=== PATIENT | female | born 1985 | race Caucasian/White ===

== ENCOUNTER → 2016-11-14 | Outpatient (CLI) | payer BC | END | disposition home or self-care (01) | LOC: C.PAPS 10:24 | PROVIDERS: ATTEND Physician Assistant | DX: Z12.4 Encounter for screening for malignant neoplasm of cervix (principal); R87.610 Atypical squamous cells of undetermined significance on cytologic smear of cervix (ASC-US) ==

== ENCOUNTER 2017-01-21 16:40 | Inpatient (IN) | payer BC ==
[~2017-01-21] VITALS: Ht 162.6 cm; Wt 78.0 kg
[2017-01-21] MEDS ORDERED: KETOROLAC TROMETHAMINE 30 MG/ML VIAL IV STA ×2 (17:04→22:43)
[2017-01-21] MEDS ORDERED: DiphenhydrAMINE HCL 50 MG/ML VIAL IV STA (17:04)
[2017-01-21] MEDS ORDERED: SODIUM CHLORIDE 0.9% 1000ML 1,000 ML IV STA (17:04)
[2017-01-21] MEDS ORDERED: PROCHLORPERAZINE 5 MG/ML 2 ML VIAL IV STA (17:04)
[2017-01-21] MEDS ORDERED: OPTIRAY 320 IV PRN (17:30)
[2017-01-21 17:31] LABS: BASO % 0.4 %; BASO ABS # 0.04 K/uL (0-0.2); COMPLETE YES; EOS % 1.4 %; HEMATOCRIT 38.4 % (37-47); IG% 0.3 %; LYMPH % 27.8 %; LYMPH ABS # 2.72 K/uL (1.2-3.4); MEAN CELL VOLUME 87.7 fL (80-100); MEAN CORPUSCULAR HEMOGLOBIN 28.8 pg (25-34); MEAN CORPUSCULAR HGB CONC 32.8 g/dl (32-36); MEAN PLATELET VOLUME 11.1 fL (7.4-10.4); MONO % 7.7 %; NEUT % 62.4 %; PLATELET COUNT 261 K/uL (130-400); RED BLOOD COUNT 4.38 M/uL (4.2-5.4)
[2017-01-21 17:40] LABS: ISTAT CREATININE 0.8 mg/dl (0.6-1.3); ISTAT HEMOGLOBIN 13.3 g/dl (12.0-16.0); ISTAT IONIZED CALCIUM 1.23 mmol/l (1.12-1.32)
[2017-01-21 17:53] LABS: ALT/SGPT 27 U/L (12-78); AST/SGOT 14 U/L (15-37); BLOOD UREA NITROGEN 12 mg/dl (7-18); BUN/CREATININE RATIO 16.6 (10-20); CALCIUM 8.4 mg/dl (8.5-10.1); CARBON DIOXIDE 27 mmol/L (21-32); CHLORIDE 103 mmol/L (98-107); CREATININE 0.75 mg/dl (0.60-1.20); GLUCOSE 120 mg/dl (70-99); POTASSIUM 3.9 mmol/L (3.5-5.1); SODIUM 134 mmol/L (136-145)
[2017-01-21 17:56] LABS: ALKALINE PHOSPHATASE 71 U/L (45-117); PREG INTERNAL NEGATIVE QC NEG CLEAR BACKGROUND; PREG INTERNAL POSITIVE QC POS CONTROL LINE
[2017-01-21 19:18] LABS: URINE APPEARANCE CLEAR (CLEAR); URINE BILIRUBIN NEG (NEG); URINE COLOR YELLOW; URINE NITRITE NEG (NEG); URINE PH 6.5 (4.5-7.5); URINE SPECIFIC GRAVITY 1.009 (1.000-1.030); UROBILINOGEN NEG (NEG)
[2017-01-21 19:20] LABS: MANUAL MICROSCOPIC REQUIRED? NO; REVIEW REQ? NO
--- NOTE | 2017-01-21 19:43 | EMERGENCY ROOM VISIT NOTE ---
History Report prepared by Julissa: Prashant Gamez Under the Supervision of: Dr. Jessee Bassett D.O. First contact with patient: 16:54 Chief Complaint: HEAD PAIN Stated Complaint: HEAD PAIN,SENT FROM [facility] History of Present Illness The patient is a 32 year old female who presents to the Emergency Room with complaints of constant headache beginning yesterday. She also complains of nausea and calf cramping. She notes that she has been having frequent headaches within the past few months, but has not been evaluated for them yet. The patient describes her pain as a feeling of "pressure". Her headache is worsened with sitting up. Nothing improves her pain. She was seen by her chiropractor yesterday for neck and back pain, and states that it improved her pain. The patient notes that her headache was present before seeing the chiropractor. She denies chest pain, fevers, or chills. She has a history of a previous abdominal blood clot. The patient has not been on blood thinners in 2 years. Her LNMP began yesterday. She has an IUD in place. Source of History: patient Onset: Yesterday Position: head Quality: pressure Timing: constant Associated Symptoms: + neck pain (resolved), + nausea, + back pain (resolved ), No fevers, No chills, No chest pain Note: Additional symptoms: calf cramping. Review of Systems See HPI for pertinent positives & negatives. A total of 10 systems reviewed and were otherwise negative. Past Medical & Surgical Medical Problems: (1) Crohn's disease (2) GERD (gastroesophageal reflux disease) (3) Gestational diabetes Family History FHx: cancer FHx: diabetes FHx: heart disease FHx: hypertension FHx: kidney disease/stones FHx: lung disease Social History Smoking Status: Never Smoker Alcohol Use: occasionally Marital Status: Housing Status: lives with family Occupation Status: employed Current/Historical Medications No Active Prescriptions or Reported Meds Allergies Coded Allergies: Hydromorphone (Verified Allergy, Intermediate, UNKNOWN, 01/21/17) Ondansetron (Verified Allergy, Mild, HIVES SWELLING, 01/21/17) Sulfa Antibiotics (Verified Allergy, Unknown, HIVES, 01/21/17) Physical Exam Vital Signs Date Time Temp Pulse Resp B/P (MAP) Pulse Ox O2 Delivery O2 Flow Rate FiO2 01/21/17 21:01 73 01/21/17 20:19 72 20 113/62 98 Room Air 01/21/17 17:48 76 01/21/17 17:46 76 16 116/75 99 Room Air 01/21/17 16:51 37.0 88 18 126/85 97 Room Air Physical Exam GENERAL: Patient is awake, and alert. Somewhat anxious and uncomfortable. EYES: The conjunctivae are clear. The pupils are round and reactive. EARS, NOSE, MOUTH AND THROAT: The nose is without any evidence of any deformity. Mucous membranes are moist tongue is midline NECK: The neck is nontender and supple. RESPIRATORY: Normal respiratory effort is noted there is no evidence of wheezing rhonchi or rales CARDIOVASCULAR: Regular rate and rhythm noted there no murmurs rubs or gallops normal S1 normal S2 GASTROINTESTINAL: The abdomen is soft. Bowel sounds are present in all quadrants. Abdomen is nontender MUSCULOSKELETAL/EXTREMITIES: There is no evidence of gross deformity full range of motion is noted in the hips and shoulders SKIN: There is no obvious evidence of any rash. There are no petechiae, pallor or cyanosis noted. NEUROLOGIC: Patient is awake alert and oriented x3 strength is symmetric patellar reflexes are 2+ bilaterally Medical Decision & Procedures ER Provider Diagnostic Interpretation: CT ANGIOGRAPHY OF THE NECK WITH CONTRAST CLINICAL HISTORY: Right-sided neck pain and headache following recent adjustment. COMPARISON STUDY: No previous studies for comparison. Technique: CT angiography of the carotid and vertebral arteries was obtained using TagwhatraLiterably 320 IV and 3D reconstruction on an independent workstation. NASCET criteria was utilized. A dose lowering technique was utilized adhering to the principles of ALARA. CT DOSE: 751.00 mGy.cm Findings: Lung apices are clear. Caliber of the aortic arch is normal. The bilateral common carotid and internal carotid arteries are patent. This exam is compromised by quantum mottle artifact. However, there is no dissection within the internal carotid or common carotid arteries. The right vertebral artery is patent. There is a markedly abnormal appearance of the left vertebral artery. The vessel is patent at its origin. However, there is marked irregular narrowing of the majority of the cervical portion of the left vertebral artery which extends from the C3-C7 levels. 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 The dissection does not appear to extend intracranially. No additional dissections are identified within the major vasculature of the neck. There is no cervical spine fracture. Several locules of soft tissue gas within the upper cervical spine are likely due to injection. IMPRESSION: 1. Severe irregular narrowing of the majority of the cervical portion of the left vertebral artery which extends from the C3 through C7 levels and is consistent with a left vertebral artery dissection given the clinical history. Possible occlusion versus severe stenosis at the C4 level. Otherwise, severe narrowing of this vessel. No evidence for intracranial extension of the dissection by CT. Discussed with Dr. Bassett at time of dictation. 2. No dissection within the bilateral common carotid or internal carotid arteries. Electronically signed by: Ed Grande M.D. 01/21/2017 8:39 PM Dictated Date/Time: 01/21/2017 8:29 PM ANGIOGRAPHY HEAD COMBO CLINICAL HISTORY: Neck pain. Right-sided headache. Recent adjustment. COMPARISON STUDY: Head CT May 15, 2015. TECHNIQUE: Unenhanced and arterial phase imaging of the head was performed. Injection of 93 cc Optiray 320 IV was uneventful. Sagittal and coronal reconstructions were viewed as well as maximal intensity projections on an independent 3-D workstation. FINDINGS: No acute intracranial hemorrhage, midline shift or mass effect is present. Brain volume is normal. Ventricular system is normal. Basilar cisterns are patent. There are no extra-axial collections. Gordon-white differentiation is maintained. There are no findings to suggest acute dural sinus thrombosis or acute territorial infarct. There are no significant calvarial abnormalities. Visualized portions of the sinuses and mastoid air cells are clear. The bilateral M1, M2, A1 and A2 segments are patent. There are bilateral posterior communicating arteries and an anterior communicating artery. There is no abrupt vessel cut off or intracranial dissection. The intracranial posterior circulation is intact. IMPRESSION: 1. No acute intracranial findings. 2. Unremarkable CTA of the head. Electronically signed by: Ed Grande M.D. 01/21/2017 8:28 PM Dictated Date/Time: 01/21/2017 8:16 PM Laboratory Results Test 01/21/17 17:20 01/21/17 17:27 01/21/17 19:03 Total Bilirubin 0.2 mg/dl (0.2-1) Direct Bilirubin < 0.1 mg/dl (0-0.2) Aspartate Amino Transf (AST/SGOT) 14 U/L (15-37) Alanine Aminotransferase (ALT/SGPT) 27 U/L (12-78) Alkaline Phosphatase 71 U/L (45-117) Total Protein 7.3 gm/dl (6.4-8.2) Albumin 3.3 gm/dl (3.4-5.0) Lipase 142 U/L (73-393) Human Chorionic Gonadotropin, Qual NEG (NEG) Bedside Hemoglobin 13.3 g/dl (12.0-16.0) Bedside Hematocrit 39 % (37-47) Bedside Sodium 138 mEq/L (135-144) Bedside Potassium 3.9 mEq/L (3.3-5.0) Bedside Chloride 103 mEq/L (101-112) Bedside Total CO2 25 mEq/l (24-31) Bedside Blood Urea Nitrogen 12 mg/dl (7-18) Bedside Creatinine 0.8 mg/dl (0.6-1.3) Bedside Glucose (other) 120 mg/dl (70-99) Bedside Ionized Calcium (Lynette) 1.23 mmol/l (1.12-1.32) Urine Color YELLOW Urine Appearance CLEAR (CLEAR) Urine pH 6.5 (4.5-7.5) Urine Specific [place] 1.009 (1.000-1.030) Urine Protein NEG (NEG) Urine Glucose (UA) NEG (NEG) Urine Ketones NEG (NEG) Urine Occult Blood NEG (NEG) Urine Nitrite NEG (NEG) Urine Bilirubin NEG (NEG) Urine Urobilinogen NEG (NEG) Urine Leukocyte Esterase NEG (NEG) Laboratory results per my review. Medications Administered Medications (Trade) Dose Ordered Sig/Radha Route Start Time Stop Time Status Last Admin Dose Admin Ketorolac Tromethamine (Toradol Inj) 30 mg NOW STAT IV 01/21/17 17:04 01/21/17 17:06 DC 01/21/17 17:41 30 MG Sodium Chloride 1,000 ml @ 999 mls/hr Q1H1M STAT IV 01/21/17 17:04 01/21/17 18:04 DC 01/21/17 17:41 999 MLS/HR Prochlorperazine Edisylate (Compazine Inj) 10 mg NOW STAT IV 01/21/17 17:04 01/21/17 17:06 DC 01/21/17 17:42 10 MG Diphenhydramine HCl (Benadryl Inj) 25 mg NOW STAT IV 01/21/17 17:04 01/21/17 17:06 DC 01/21/17 17:41 25 MG ED Course 1701: The patient was evaluated in room B6. A complete history and physical examination were performed. 1704: Ordered Benadryl Inj 25 mg IV, Compazine Inj 10 mg IV, NSS 1,000 ml @ 999 mls/hr IV, Toradol Inj 30 mg IV. Medical Decision Differential diagnosis: Etiologies such as migraine headache, meningitis, sinusitis, CO exposure, ICH, SAH, infection, tumor, headache, sinus thrombosis, arterial dissection, as well as others were entertained. Nursing notes reviewed. The patient is a 32-year-old female who presented to the emergency department for an evaluation of headache. The patient complained of multiple areas of pain including her back her neck as well as her head. She was seen by chiropractor recently. She states that she did have an adjustment but did not necessarily feel worse after the adjustment. The patient did not have any focal neurologic deficits. She had no meningismus. I discussed the patient's laboratory and radiographic studies with her. She was treated with pain medication in the emergency department which would be appropriate for an acute headache. She was reevaluated multiple times. I discussed the patient's condition with the on-call [facility] neurologist. He has recommended IV heparin and further neuro imaging as an inpatient. I discussed his case with the on-call [facility] is. They've agreed to evaluate the patient in the emergency department for further management and disposition. Medication Reconcilliation Current Medication List: was personally reviewed by me Blood Pressure Screening Patient's blood pressure: Normal blood pressure Blood pressure disposition: Did not require urgent referral Consults Time Called: 2039 Consulting Physician: Dr Carrillo Returned Call: [phone] He recommends IV heparin and further workup including MRI as an inpatient. Additional Consults: Time Called: 2044 Consulted Physician: Dr Lnych Returned Call: [phone] Additional Comments: He will evaluate the patient in emergency department for further management and disposition. Impression Primary Impression: Dissection, vertebral artery Additional Impression: Headache Critical Care I have personally spent greater than 45 minutes of critical care time in the direct management of this patient. This includes bedside care, interpretation of diagnostic studies, and testing, discussion with consultants, patient, and family members, and other required patient management activities. This 45 minutes is in excess of all separately billable procedures. Scribe Attestation The scribe's documentation has been prepared under my direction and personally reviewed by me in its entirety. I confirm that the note above accurately reflects all work, treatment, procedures, and medical decision making performed by me. Departure Information Prescriptions No Active Prescriptions or Reported Meds Referrals Yomi Bates M.D. (PCP) Patient Instructions My [facility] Problem Qualifiers Additional Impression: Headache Headache type: unspecified Headache chronicity pattern: acute headache Intractability: not intractable Qualified Codes: R51 - Headache
--- NOTE | 2017-01-21 20:29 | DIAGNOSTIC IMAGING REPORT ---
ANGIOGRAPHY HEAD COMBO CLINICAL HISTORY: Neck pain. Right-sided headache. Recent adjustment. COMPARISON STUDY: Head CT May 15, 2015. TECHNIQUE: Unenhanced and arterial phase imaging of the head was performed. Injection of 93 cc Optiray 320 IV was uneventful. Sagittal and coronal reconstructions were viewed as well as maximal intensity projections on an independent 3-D workstation. FINDINGS: No acute intracranial hemorrhage, midline shift or mass effect is present. Brain volume is normal. Ventricular system is normal. Basilar cisterns are patent. There are no extra-axial collections. Gordon-white differentiation is maintained. There are no findings to suggest acute dural sinus thrombosis or acute territorial infarct. There are no significant calvarial abnormalities. Visualized portions of the sinuses and mastoid air cells are clear. The bilateral M1, M2, A1 and A2 segments are patent. There are bilateral posterior communicating arteries and an anterior communicating artery. There is no abrupt vessel cut off or intracranial dissection. The intracranial posterior circulation is intact. IMPRESSION: 1. No acute intracranial findings. 2. Unremarkable CTA of the head. Electronically signed by: Ed Grande M.D. 01/21/2017 8:28 PM Dictated Date/Time: 01/21/2017 8:16 PM
--- NOTE | 2017-01-21 20:41 | DIAGNOSTIC IMAGING REPORT ---
CT ANGIOGRAPHY OF THE NECK WITH CONTRAST CLINICAL HISTORY: Right-sided neck pain and headache following recent adjustment. COMPARISON STUDY: No previous studies for comparison. Technique: CT angiography of the carotid and vertebral arteries was obtained using Syrmo 320 IV and 3D reconstruction on an independent workstation. NASCET criteria was utilized. A dose lowering technique was utilized adhering to the principles of ALARA. CT DOSE: 751.00 mGy.cm Findings: Lung apices are clear. Caliber of the aortic arch is normal. The bilateral common carotid and internal carotid arteries are patent. This exam is compromised by quantum mottle artifact. However, there is no dissection within the internal carotid or common carotid arteries. The right vertebral artery is patent. There is a markedly abnormal appearance of the left vertebral artery. The vessel is patent at its origin. However, there is marked irregular narrowing of the majority of the cervical portion of the left vertebral artery which extends from the C3-C7 levels. 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 The dissection does not appear to extend intracranially. No additional dissections are identified within the major vasculature of the neck. There is no cervical spine fracture. Several locules of soft tissue gas within the upper cervical spine are likely due to injection. IMPRESSION: 1. Severe irregular narrowing of the majority of the cervical portion of the left vertebral artery which extends from the C3 through C7 levels and is consistent with a left vertebral artery dissection given the clinical history. Possible occlusion versus severe stenosis at the C4 level. Otherwise, severe narrowing of this vessel. No evidence for intracranial extension of the dissection by CT. Discussed with Dr. Bassett at time of dictation. 2. No dissection within the bilateral common carotid or internal carotid arteries. Electronically signed by: Ed Grande M.D. 01/21/2017 8:39 PM Dictated Date/Time: 01/21/2017 8:29 PM
[2017-01-21 21:10] LABS: PARTIAL THROMBOPLASTIN RATIO 1.1; PROTHROMBIN TIME (PATIENT) 10.5 SECONDS (9.0-12.0)
[2017-01-21] MEDS ORDERED: HEPARIN 25000 UNIT/500 ML D5W ONE (21:18)
[2017-01-21 22:06] VITALS: BP 136/82; PULSE 73; TEMP 36.8; O2SAT 97; Ht 162.6 cm; Wt 78.0 kg
[2017-01-21] MEDS: SODIUM CHLORIDE 0.9% 1000ML 1,000 ML IV SCH (22:42)
[2017-01-21] MEDS ORDERED: PROCHLORPERAZINE MALEATE 5 MG TAB PO PRN (22:45)
[2017-01-21] MEDS ORDERED: NAPROXEN 250 MG TAB PO PRN (22:45)
[2017-01-21 22:50] LABS: PARTIAL THROMBOPLASTIN RATIO 1.2; PROTHROMBIN TIME (PATIENT) 10.7 SECONDS (9.0-12.0)
[2017-01-21 22:54] LABS: BASO % 0.2 %; BASO ABS # 0.02 K/uL (0-0.2); EOS % 1.3 %; HEMATOCRIT 35.8 % (37-47); IG% 0.3 %; LYMPH % 32.8 %; LYMPH ABS # 3.92 K/uL (1.2-3.4); MEAN CELL VOLUME 87.5 fL (80-100); MEAN CORPUSCULAR HEMOGLOBIN 28.6 pg (25-34); MEAN PLATELET VOLUME 11.4 fL (7.4-10.4); MONO % 5.3 %; NEUT % 60.1 %; PLATELET COUNT 260 K/uL (130-400); RED BLOOD COUNT 4.09 M/uL (4.2-5.4); WHITE BLOOD COUNT 11.94 K/uL (4.8-10.8)
[2017-01-21 22:55] LABS: COMPLETE YES; MEAN CORPUSCULAR HGB CONC 32.7 g/dl (32-36)
[2017-01-22] VITALS (7 sets, daily range): BP systolic 108–125; BP diastolic 58–80; PULSE 64–85; TEMP 36.6–37; O2SAT 95–98
--- NOTE | 2017-01-22 00:35 | History and Physical ---
History & Physical Date & Time of Service: Jan 22, 2017 at 00:20 Chief Complaint: Dissection, Vertebral Artery Primary Care Physician: Yomi Bates M.D. History of Present Illness Source: patient, clinic records This is a 32 year old female with no significant past medical history presents with a few day history of headache, states that she also had neck pain and back pain associated with the headache. She states that it is worse with light - she was once on Imitrex for migraines. She also developed significant neck pain - she was seen by a chiropractor yesterday and had some treatment done on her neck /back and states that it helped with her pain. She continued to have headaches though, so presented for evaluation. She had CTA of the head/neck which suggested L vertebral artery dissection. Neurology was consulted and they recommended anticoagulation and MRI/MRA of head/neck. Patient continues to have neck and R sided pain. Denies fevers/chills, denies chest pain/shortness of breath/nausea/vomiting/diarrhea. Past Medical/Surgical History Medical Problems: (1) Crohn's disease Status: Chronic (2) GERD (gastroesophageal reflux disease) Status: Chronic (3) Gestational diabetes Status: Chronic Family History FHx: cancer FHx: diabetes FHx: heart disease FHx: hypertension FHx: kidney disease/stones FHx: lung disease Social History Smoking Status: Never Smoker Marital Status: Occupational Status: employed Immunizations History of Influenza Vaccine: Unknown History of Tetanus Vaccine?: Yes Tetanus Immunization Date: Apr 08, 2008 History of Pneumococcal: Unknown History of Hepatitis B Vaccine: Unknown Multi-Drug Resistant Organisms History of MDRO: No Allergies Coded Allergies: Hydromorphone (Verified Allergy, Intermediate, UNKNOWN, 01/21/17) Ondansetron (Verified Allergy, Mild, HIVES SWELLING, 01/21/17) Sulfa Antibiotics (Verified Allergy, Unknown, HIVES, 01/21/17) Home Medications No Active Prescriptions or Reported Meds Review of Systems Constitutional: No fever, No chills Eyes: No worsening of vision, No eye pain, No redness, No discharge, No diplopia ENT: + problem reported (neck pain, R sided, headache), No hearing loss, No unusual epistaxis, No nasal symptoms, No sore throat, No tinnitus, No dental problems, No trouble swallowing Respiratory: No cough, No sputum, No shortness of breath, No dyspnea on exertion, No dyspnea at rest, No hemoptysis Cardiovascular: No chest pain, No edema, No palpitations Abdomen: No pain, No nausea, No vomiting, No diarrhea Musculoskeletal: + joint pain (cervical neck pain), + muscle pain Genitourinary - Female: No dysuria, No urinary frequency, No urinary urgency, No urinary incontinence, No urinary retention, No hematuria Neurologic: No memory loss, No numbness/tingling, No vertigo Psychiatric: No depression symptoms, No anxiety, No insomnia Endocrine: No fatigue Hematologic / Lymphatic: No abnormal bleeding/bruising Integumentary: No rash Allergic / Immunologic: No environmental allergies, No seasonal allergies Physical Exam Vital Signs Date Time Temp Pulse Resp B/P (MAP) Pulse Ox O2 Delivery O2 Flow Rate FiO2 01/21/17 22:06 36.8 73 18 136/82 97 Room Air 01/21/17 21:33 80 20 130/73 97 Room Air 01/21/17 21:01 73 01/21/17 20:19 72 20 113/62 98 Room Air 01/21/17 17:48 76 01/21/17 17:46 76 16 116/75 99 Room Air 01/21/17 16:51 37.0 88 18 126/85 97 Room Air General Appearance: WD/WN, + mild distress (secondary to pain) Head: normocephalic, atraumatic Eyes: normal inspection, PERRL, EOMI ENT: normal ENT inspection, hearing grossly normal Neck: + pertinent finding (cervical muscle spasm; tenderness to palpation) Respiratory/Chest: chest non-tender, lungs clear, normal breath sounds, no respiratory distress, no accessory muscle use Cardiovascular: regular rate, rhythm, no edema, no gallop, no JVD, no murmur, normal peripheral pulses Abdomen/GI: normal bowel sounds, non tender, soft Back: normal inspection, no CVA tenderness, no muscle spasm, normal range of motion Extremities/Musculoskelatal: normal inspection, no calf tenderness, normal capillary refill, no pedal edema, normal range of motion Neurologic/Psych: tube draw helper II-XII nml as tested, no motor/sensory deficits, alert, normal mood/affect, oriented x 3 Skin: normal color Lymphatic: no adenopathy Diagnostics Laboratory Results Results Past 24 Hours Test 01/21/17 17:20 11/25/17 17:27 01/21/17 19:03 01/21/17 22:24 Range/Units White Blood Count 9.80 11.94 4.8-10.8 K/uL Red Blood Count 4.38 4.09 4.2-5.4 M/uL Hemoglobin 12.6 11.7 12.0-16.0 g/dL Hematocrit 38.4 35.8 37-47 % Mean Corpuscular Volume 87.7 87.5 80-100 fL Mean Corpuscular Hemoglobin 28.8 28.6 25-34 pg Mean Corpuscular Hemoglobin Concent 32.8 32.7 32-36 g/dl Platelet Count 261 260 130-400 K/uL Mean Platelet Volume 11.1 11.4 7.4-10.4 fL Neutrophils (%) (Auto) 62.4 60.1 % Lymphocytes (%) (Auto) 27.8 32.8 % Monocytes (%) (Auto) 7.7 5.3 % Eosinophils (%) (Auto) 1.4 1.3 % Basophils (%) (Auto) 0.4 0.2 % Neutrophils # (Auto) 6.12 7.18 1.4-6.5 K/uL Lymphocytes # (Auto) 2.72 3.92 1.2-3.4 K/uL Monocytes # (Auto) 0.75 0.63 0.11-0.59 K/uL Eosinophils # (Auto) 0.14 0.16 0-0.5 K/uL Basophils # (Auto) 0.04 0.02 0-0.2 K/uL RDW Standard Deviation 42.3 42.7 36.4-46.3 fL RDW Coefficient of Variation 13.0 13.3 11.5-14.5 % Immature Granulocyte % (Auto) 0.3 0.3 % Immature Granulocyte # (Auto) 0.03 0.03 0.00-0.02 K/uL Prothrombin Time 10.5 10.7 9.0-12.0 SECONDS Prothromb Time International Ratio 1.0 1.0 0.9-1.1 Activated Partial Thromboplast Time 29.0 32.4 21.0-31.0 SECONDS Partial Thromboplastin Ratio 1.1 1.2 Sodium Level 134 136-145 mmol/L Potassium Level 3.9 3.5-5.1 mmol/L Chloride Level 103 98-107 mmol/L Carbon Dioxide Level 27 21-32 mmol/L Anion Gap 4.0 15.0 16-25 mmol/L Blood Urea Nitrogen 12 7-18 mg/dl Creatinine 0.75 0.60-1.20 mg/dl Est Creatinine Clear Calc Drug Dose 108.1 ml/min Estimated GFR () 120.5 Estimated GFR (Non- 104.0 BUN/Creatinine Ratio 16.6 10-20 Random Glucose 120 70-99 mg/dl Calcium Level 8.4 8.5-10.1 mg/dl Total Bilirubin 0.2 0.2-1 mg/dl Direct Bilirubin < 0.1 0-0.2 mg/dl Aspartate Amino Transf (AST/SGOT) 14 15-37 U/L Alanine Aminotransferase (ALT/SGPT) 27 12-78 U/L Alkaline Phosphatase 71 45-117 U/L Total Protein 7.3 6.4-8.2 gm/dl Albumin 3.3 3.4-5.0 gm/dl Lipase 142 73-393 U/L Human Chorionic Gonadotropin, Qual NEG NEG Bedside Hemoglobin 13.3 12.0-16.0 g/dl Bedside Hematocrit 39 37-47 % Bedside Sodium 138 135-144 mEq/L Bedside Potassium 3.9 3.3-5.0 mEq/L Bedside Chloride 103 101-112 mEq/L Bedside Total CO2 25 24-31 mEq/l Bedside Blood Urea Nitrogen 12 7-18 mg/dl Bedside Creatinine 0.8 0.6-1.3 mg/dl Bedside Glucose (other) 120 70-99 mg/dl Bedside Ionized Calcium (Lynette) 1.23 1.12-1.32 mmol/l Urine Color YELLOW Urine Appearance CLEAR CLEAR Urine pH 6.5 4.5-7.5 Urine Specific [place] 1.009 1.000-1.030 Urine Protein NEG NEG Urine Glucose (UA) NEG NEG Urine Ketones NEG NEG Urine Occult Blood NEG NEG Urine Nitrite NEG NEG Urine Bilirubin NEG NEG Urine Urobilinogen NEG NEG Urine Leukocyte Esterase NEG NEG Diagnostic Radiology CT ANGIOGRAPHY OF THE NECK WITH CONTRAST CLINICAL HISTORY: Right-sided neck pain and headache following recent adjustment. COMPARISON STUDY: No previous studies for comparison. Technique: CT angiography of the carotid and vertebral arteries was obtained using [employer] 320 IV and 3D reconstruction on an independent workstation. NASCET criteria was utilized. A dose lowering technique was utilized adhering to the principles of ALARA. CT DOSE: 751.00 mGy.cm Findings: Lung apices are clear. Caliber of the aortic arch is normal. The bilateral common carotid and internal carotid arteries are patent. This exam is compromised by quantum mottle artifact. However, there is no dissection within the internal carotid or common carotid arteries. The right vertebral artery is patent. There is a markedly abnormal appearance of the left vertebral artery. The vessel is patent at its origin. However, there is marked irregular narrowing of the majority of the cervical portion of the left vertebral artery which extends from the C3-C7 levels. 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 The dissection does not appear to extend intracranially. No additional dissections are identified within the major vasculature of the neck. There is no cervical spine fracture. Several locules of soft tissue gas within the upper cervical spine are likely due to injection. IMPRESSION: 1. Severe irregular narrowing of the majority of the cervical portion of the left vertebral artery which extends from the C3 through C7 levels and is consistent with a left vertebral artery dissection given the clinical history. Possible occlusion versus severe stenosis at the C4 level. Otherwise, severe narrowing of this vessel. No evidence for intracranial extension of the dissection by CT. Discussed with Dr. Bassett at time of dictation. 2. No dissection within the bilateral common carotid or internal carotid arteries. Impression Assessment and Plan This is a 32 year old female with no significant past medical history presents with a few day history of headache found to have vertebral artery dissection L Vertebral Artery Dissection Head/neck CTA performed showing a L vertebral artery dissection; no intracranial extension appreciate neurology input will start IV heparin MRI/MRA of the head/neck ordered monitor labs and Hgb Toradol and Naproxen PRN for headache should be on antiplatelets - started on aspirin neurology consulted FULL CODE Advanced Directives Existing Living Will: No Existing Power of Locomotive Engineer Diesel: No VTE Prophylaxis VTE Risk Assessment Done? Y/N: Yes Risk Level: Moderate Given or contraindicated: Other Anticoagulation
[2017-01-22 03:29] LABS: HEMATOCRIT 36.7 % (37-47); MEAN CELL VOLUME 87.8 fL (80-100); MEAN CORPUSCULAR HEMOGLOBIN 29.4 pg (25-34); MEAN CORPUSCULAR HGB CONC 33.5 g/dl (32-36); MEAN PLATELET VOLUME 11.6 fL (7.4-10.4); PLATELET COUNT 253 K/uL (130-400); RED BLOOD COUNT 4.18 M/uL (4.2-5.4); WHITE BLOOD COUNT 10.04 K/uL (4.8-10.8)
[2017-01-22 03:42] LABS: PARTIAL THROMBOPLASTIN RATIO 1.7
[2017-01-22 03:48] LABS: BUN/CREATININE RATIO 15.1 (10-20); CALCIUM 8.3 mg/dl (8.5-10.1); CREATININE 0.68 mg/dl (0.60-1.20); POTASSIUM 3.8 mmol/L (3.5-5.1)
[2017-01-22] MEDS ORDERED: HEPARIN IV BOLUS 3,000 UNIT in SYRINGE 0 ML IV ONE (05:00)
--- NOTE | 2017-01-22 06:56 | DIAGNOSTIC IMAGING REPORT ---
Brain MRI WITHOUT CONTRAST HISTORY: Headaches. f/u vertebral artery dissection TECHNIQUE: Multiplanar multisequence MRI of the brain was performed without the use of contrast. COMPARISON STUDY: None. FINDINGS: There are no areas of restricted diffusion to suggest acute infarction. The midline structures are intact. Small retention cyst within the left maxillary sinus and mild mucosal thickening within the right sphenoid sinus.. The mastoid air cells are clear. The ventricles and sulci are within normal limits for age. There is no mass, hematoma, midline shift. The major vascular flow-voids at the skull base are well maintained. IMPRESSION: No acute intracranial abnormality. Electronically signed by: Mario Alberto Mcclelland M.D. 01/22/2017 6:54 AM Dictated Date/Time: 01/22/2017 6:51 AM
--- NOTE | 2017-01-22 06:58 | DIAGNOSTIC IMAGING REPORT ---
Brain MRA HISTORY: f/u vertebral artery dissection TECHNIQUE: 3-D [id number] MRA of the brain was performed without contrast. COMPARISON STUDY: None. FINDINGS: Visualized intracranial internal carotid arteries, distal vertebral arteries, and basilar artery are widely patent. There is no significant stenosis, occlusion, or aneurysm seen within the bilateral ACAs, MCAs, or counter stitcher. Slightly hypoplastic distal left vertebral artery. IMPRESSION: No significant stenosis, occlusion, or aneurysm within the [place]. Electronically signed by: Mario Alberto Mcclelland M.D. 01/22/2017 6:56 AM Dictated Date/Time: 01/22/2017 6:54 AM
--- NOTE | 2017-01-22 07:01 | DIAGNOSTIC IMAGING REPORT ---
NECK MRA HISTORY: f/u vertebral artery dissection TECHNIQUE: [id number] and gadolinium-enhanced MRA of the neck was performed both before and after the intravenous administration of contrast. All measurements were calculated based on NASCET criteria. COMPARISON STUDY: Neck CTA 01/21/2017. FINDINGS: The aortic arch and proximal great vessels are widely patent. Dominant right vertebral artery which is widely patent. Bilateral common carotid and internal carotid arteries are widely patent without evidence for dissection. The proximal left vertebral artery is patent. However, there is again noted severe narrowing within the left vertebral artery from the C3-C7 level consistent with the patient's history of a vertebral artery dissection. Distal vertebral artery is patent and demonstrates slight diminished perfusion. IMPRESSION: 1. No significant change in the severe narrowing of the left vertebral artery from the C3-C7 level consistent with a vertebral artery dissection. 2. Otherwise, the right vertebral artery and carotid arteries are widely patent. Electronically signed by: Mario Alberto Mcclelland M.D. 01/22/2017 7:00 AM Dictated Date/Time: 01/22/2017 6:56 AM
[2017-01-22] MEDS: ASPIRIN 81 MG ECTAB PO SCH (07:36)
[2017-01-22] MEDS ORDERED: INFLUENZA VIRUS QUAD VACCINE 0.5 ML SYR IM. ONE (08:00)
[2017-01-22] MEDS ORDERED: INFLUENZA ADMINISTRATION CHARGE ONE (08:00)
[2017-01-22 09:02] LABS: PARTIAL THROMBOPLASTIN RATIO 3.5
[2017-01-22] MEDS ORDERED: MoRPHine SULFATE 2 MG/ML CARP IV PRN (09:30)
[2017-01-22] MEDS ORDERED: ACETAMINOPHEN IV 100 ML IV PRN (09:30)
[2017-01-22] MEDS: SODIUM CHLORIDE 0.9% 1000ML 1,000 ML IV SCH ×2 (11:01→23:00)
--- NOTE | 2017-01-22 13:04 | CONSULTATION REPORT ---
DATE OF CONSULTATION: 01/22/[address] Guerrero. Debo is a 32-year-old woman with a known history of migraine headaches, increasingly frequent of late and well known to Dr. Yomi Bates. She has had some neck and back pain associated with the headaches and actually sought chiropractic help several days ago and received manipulations of the cervical and I suspect lumbar spine. The neck pain improved, but then she developed more headache and a sensation of burning inside her neck and head and was seen by the ER. The ER physician astutely obtained a history of recent chiropractic manipulation, performed a CTA of the head and noted long irregular appearance of the vertebral artery consistent with the dissection. Subsequently, imaging studies have shown no evidence for acute infarction, at least by my interpretation of the films. She has been admitted to the hospital. She is on heparin and is underway to be switched over to Coumadin as per the standard treatment protocol for the dissection. PAST MEDICAL HISTORY: Medical problems include Crohn disease, GERD, gestational diabetes and in the past some hypercoagulability issues that may have been related to surgery. This is all very vague. She was at [facility] for this. Her mother had a blood clot workup without any detection of familial hypercoagulability and I am sure the patient did as well but this is probably somewhere in the [facility] records and needs review. FAMILY HISTORY: Otherwise family history is positive for cancer, diabetes, heart disease, hypertension, kidney disease and lung disease. SOCIAL HISTORY: Reveals her to be a never smoker. She is . She is employed. She does not consume ethanol to any significant degree. Her immunizations are up-to-date. She has no history of drug resistant organisms. ALLERGIES: SHE HAS ALLERGIES TO HYDROMORPHONE, ZOFRAN, AND SULFA. She reports no active medications other than at times some Imitrex for the headaches and generally relies on Excedrin Migraine or nonsteroidal anti-inflammatories. To my knowledge, she has never been placed on any preventative medications for headache such as beta marilyn, tricyclic antidepressants, Topamax, serotonin reuptake inhibitors, Depakote, etc. REVIEW OF SYSTEMS: With the exception of the headaches and neck pain, pretty unremarkable. She has had no significant systemic complaints. She has had no issues referable to head, eyes, ears, nose and throat, cardiovascular, pulmonary, gastrointestinal, genitourinary, musculoskeletal systems save for the problems that are enumerated above under past medical history. Neurologically, she has some migraines, but none of these are associated with any particular aura and she has had the neck pain and apparently does receive chiropractic manipulations on a fairly regular basis as needed and did have manipulation just prior to the onset of her current complaints. PHYSICAL EXAMINATION: VITAL SIGNS: Her blood pressure 136/82, pulse was 73, respirations were 18. GENERAL: She was awake, alert, oriented in 3 spheres. HEENT: She had no cranial deformities. No bruits were heard. Eye movements were normal. LUNGS: Clear. HEART: Had a regular rhythm. ABDOMEN: Soft and nontender. EXTREMITIES: Free of edema. NEUROLOGIC: Today neurologically she is awake, alert, oriented in 3 spheres, has normal eye movements. No nystagmus is seen. There is no pupillary asymmetry, no visual field cuts. Facial motility and strength, facial sensation is normal. Speech is clear and there is no tremor, tics, or choreiform activity. Strength is excellent. Reflexes are 1+. Toes are downgoing. No Wiliam signs are seen. Sensation is intact. At this point fortunately, we have detected the dissection of the vertebral artery without any evidence clinically or by imaging studies that this has produced a stroke in the posterior circulation. The recommended management here would be heparin swinging over to Coumadin for 3 months, then repeat a CTA to see if the vessel has recanalized and if so, stopping the Coumadin and switching over to aspirin only as long as she can tolerate it and plavix if she cannot.. I will check back with her tomorrow. I would recommend she be started on Coumadin fairly soon, so that her INR could get in the range, we can stop the heparin and get her home. In terms of headache management, I certainly would not use triptans in this setting. I would use analgesics. She probably will need to follow up with neurology within several weeks of discharge, have her situation reviewed and perhaps be started on a program of headache management with preventative agents. I certainly would suggest that she could try some magnesium oxide 400 mg a day and riboflavin 400 mg a day while she is here as these are unlikely to have any effect on her vasculature and again I would use some nonnarcotic and judicious narcotic analgesics if her headaches are problematic but I would stay away from triptans. I will check with her tomorrow. ELIZABETH
[2017-01-22] MEDS ORDERED: WARFARIN SOD 10 MG TAB PO ONE (14:45)
[2017-01-22] MEDS: MoRPHine SULFATE 4 MG/ML 1 ML CARP\\VIAL IV PRN ×2 (14:45→23:37)
[2017-01-22 16:18] LABS: PARTIAL THROMBOPLASTIN RATIO 1.9
[2017-01-22] MEDS: HEPARIN 25,000 UNIT/500ML D5W 500 ML IV PRN (16:51)
--- NOTE | 2017-01-22 17:51 | Progress Note ---
Internal Med Progress Note Date of Service: Jan 22, 2017. Provider Documentation: SUBJECTIVE: still has significant headache on the back side of head has photophobia denies nausea no blurry vision no sob or cough afebrile OBJECTIVE: Vital Signs-as noted below Exam: General-alert and oriented. Not in distress ENT-Normal hearing Neck-no neck masses Lungs-CTA b/l no wheezing or crackles Heart-S1 and S2 heard. Regular rate and rhythm, no murmurs Abdomen-Soft Bowel sounds present no tenderness present no distension Extremities-No pedal edema no erythema Neuro-alert and awake moves extremities Lab data as noted below. ASSESSMENT & PLAN: This is a 32 year old female with no significant past medical history presents with a few day history of headache found to have vertebral artery dissection L Vertebral Artery Dissection Head/neck CTA performed showing a L vertebral artery dissection; no intracranial extension appreciate neurology input started on IV heparin MRI/MRA of the head/neck shows same should be on antiplatelets - started on aspirin started on Coumadin f/u inr pain control neurology consulted and appreciate inputs DVT PROPHYLAXIS iv heparin DISPOSITION to be determined Vital Signs: Date Time Temp Pulse Resp B/P (MAP) Pulse Ox O2 Delivery O2 Flow Rate FiO2 01/22/17 16:00 Room Air 01/22/17 15:56 36.7 64 18 123/80 (94) 97 Room Air 01/22/17 12:00 Room Air 01/22/17 11:57 37.0 76 16 109/58 (75) 96 Room Air 01/22/17 08:00 Room Air 01/22/17 07:45 36.8 70 16 114/60 (78) 98 Room Air 01/22/17 04:00 36.8 67 19 108/64 (79) 98 Room Air 01/22/17 04:00 97 Room Air 01/22/17 00:46 36.6 85 16 119/73 (88) 95 Room Air 01/22/17 00:00 97 Room Air 01/21/17 22:06 36.8 73 18 136/82 97 Room Air 01/21/17 21:33 80 20 130/73 97 Room Air 01/21/17 21:01 73 01/21/17 20:19 72 20 113/62 98 Room Air 01/21/17 17:48 76 Lab Results: Results Past 24 Hours Test 01/21/17 19:03 01/21/17 22:24 01/22/17 03:17 01/22/17 08:32 Range/Units Urine Color YELLOW Urine Appearance CLEAR CLEAR Urine pH 6.5 4.5-7.5 Urine Specific [place] 1.009 1.000-1.030 Urine Protein NEG NEG Urine Glucose (UA) NEG NEG Urine Ketones NEG NEG Urine Occult Blood NEG NEG Urine Nitrite NEG NEG Urine Bilirubin NEG NEG Urine Urobilinogen NEG NEG Urine Leukocyte Esterase NEG NEG White Blood Count 11.94 10.04 4.8-10.8 K/uL Red Blood Count 4.09 4.18 4.2-5.4 M/uL Hemoglobin 11.7 12.3 12.0-16.0 g/dL Hematocrit 35.8 36.7 37-47 % Mean Corpuscular Volume 87.5 87.8 80-100 fL Mean Corpuscular Hemoglobin 28.6 29.4 25-34 pg Mean Corpuscular Hemoglobin Concent 32.7 33.5 32-36 g/dl Platelet Count 260 253 130-400 K/uL Mean Platelet Volume 11.4 11.6 7.4-10.4 fL Neutrophils (%) (Auto) 60.1 % Lymphocytes (%) (Auto) 32.8 % Monocytes (%) (Auto) 5.3 % Eosinophils (%) (Auto) 1.3 % Basophils (%) (Auto) 0.2 % Neutrophils # (Auto) 7.18 1.4-6.5 K/uL Lymphocytes # (Auto) 3.92 1.2-3.4 K/uL Monocytes # (Auto) 0.63 0.11-0.59 K/uL Eosinophils # (Auto) 0.16 0-0.5 K/uL Basophils # (Auto) 0.02 0-0.2 K/uL RDW Standard Deviation 42.7 42.0 36.4-46.3 fL RDW Coefficient of Variation 13.3 13.0 11.5-14.5 % Immature Granulocyte % (Auto) 0.3 % Immature Granulocyte # (Auto) 0.03 0.00-0.02 K/uL Prothrombin Time 10.7 9.0-12.0 SECONDS Prothromb Time International Ratio 1.0 0.9-1.1 Activated Partial Thromboplast Time 32.4 43.5 91.4 21.0-31.0 SECONDS Partial Thromboplastin Ratio 1.2 1.7 3.5 Sodium Level 136 136-145 mmol/L Potassium Level 3.8 3.5-5.1 mmol/L Chloride Level 105 98-107 mmol/L Carbon Dioxide Level 26 21-32 mmol/L Anion Gap 5.0 3-11 mmol/L Blood Urea Nitrogen 10 7-18 mg/dl Creatinine 0.68 0.60-1.20 mg/dl Est Creatinine Clear Calc Drug Dose 118.0 ml/min Estimated GFR () 132.3 Estimated GFR (Non- 114.1 BUN/Creatinine Ratio 15.1 10-20 Random Glucose 113 70-99 mg/dl Calcium Level 8.3 8.5-10.1 mg/dl Test 01/22/17 15:40 Range/Units Activated Partial Thromboplast Time 48.2 21.0-31.0 SECONDS Partial Thromboplastin Ratio 1.9
[2017-01-22] MEDS ORDERED: MAGNESIUM OXIDE 400 MG TAB PO ONE (18:00)
[2017-01-23 00:10] VITALS: BP 115/72; PULSE 71; TEMP 36.8; O2SAT 97
[2017-01-23 03:17] VITALS: BP 100/65; PULSE 66; TEMP 36.5; O2SAT 98
[2017-01-23 05:01] LABS: INR 1.1 (0.9-1.1); PROTHROMBIN TIME (PATIENT) 12.3 SECONDS (9.0-12.0)
[2017-01-23 07:48] VITALS: BP 111/73; PULSE 69; TEMP 37; O2SAT 99
[2017-01-23] MEDS: ASPIRIN 81 MG ECTAB PO SCH (08:19)
[2017-01-23] MEDS: MAGNESIUM OXIDE 400 MG TAB PO SCH (08:20)
[2017-01-23] MEDS: MoRPHine SULFATE 4 MG/ML 1 ML CARP\\VIAL IV PRN ×3 (10:45→20:57)
[2017-01-23 11:12] VITALS: BP 120/79; PULSE 83; TEMP 36.8; O2SAT 97
[2017-01-23] MEDS: SODIUM CHLORIDE 0.9% 1000ML 1,000 ML IV SCH (11:43)
[2017-01-23 15:47] VITALS: BP 123/79; PULSE 73; TEMP 36.6; O2SAT 97
[2017-01-23] MEDS: WARFARIN SOD 5 MG TAB PO SCH (15:59)
[2017-01-23] MEDS: HEPARIN 25,000 UNIT/500ML D5W 500 ML IV PRN ×2 (16:00→18:57)
--- NOTE | 2017-01-23 16:23 | Progress Note ---
Internal Med Progress Note Date of Service: Jan 23, 2017. Provider Documentation: SUBJECTIVE: headache is same but lights not bothering her anymore afebrile' denies chest pain or sob eating ok seems comfortable OBJECTIVE: Vital Signs-as noted below Exam: General-alert and oriented. Not in distress ENT-Normal hearing Neck-no neck masses Lungs-CTA b/l no wheezing or crackles Heart-S1 and S2 heard. Regular rate and rhythm, no murmurs Abdomen-Soft Bowel sounds present no tenderness present no distension Extremities-No pedal edema no erythema Neuro-alert and awake moves extremities Lab data as noted below. ASSESSMENT & PLAN: This is a 32 year old female with no significant past medical history presents with a few day history of headache found to have vertebral artery dissection L Vertebral Artery Dissection Head/neck CTA performed showing a L vertebral artery dissection; no intracranial extension appreciate neurology input started on IV heparin MRI/MRA of the head/neck shows same should be on antiplatelets - started on aspirin started on Coumadin f/u inr pain control neurology consulted and appreciate inputs started on magnesium tab daily await pain better controlled and inr to be therapeutic NEUROLOGY RECOMMENDS TO F/U WITH THEM IN 3 WEEKS WITH CTA HEAD HEADACHE NEURO RECOMMENDING PREDNISONE STARTING TOMORROW WIT 80MG DOSE AND TAPER. DVT PROPHYLAXIS iv heparin DISPOSITION to be determined Vital Signs: Date Time Temp Pulse Resp B/P (MAP) Pulse Ox O2 Delivery O2 Flow Rate FiO2 01/23/17 16:25 Room Air 01/23/17 15:47 36.6 73 16 123/79 (94) 97 Room Air 01/23/17 12:15 Room Air 01/23/17 11:12 36.8 83 16 120/79 (93) 97 Room Air 01/23/17 08:45 Room Air 01/23/17 07:48 37.0 69 16 111/73 (86) 99 Room Air 01/23/17 04:00 Room Air 01/23/17 03:17 36.5 66 20 100/65 (77) 98 Room Air 01/23/17 00:10 36.8 71 18 115/72 (86) 97 Room Air 01/23/17 00:00 Room Air 01/22/17 19:06 37.0 81 18 125/70 (88) 98 Room Air Lab Results: Results Past 24 Hours Test 01/23/17 04:30 Range/Units Prothrombin Time 12.3 9.0-12.0 SECONDS Prothromb Time International Ratio 1.1 0.9-1.1 Activated Partial Thromboplast Time 52.7 21.0-31.0 SECONDS Partial Thromboplastin Ratio 2.0
--- NOTE | 2017-01-23 17:31 | PROGRESS NOTE ---
DATE: 01/23/2017 Debo is looking stable today. She has been moved to the regular floor. She has a major headache which has not broken over several days and has been resistant to narcotics. She is still having a little photophobia but is able to look out the window without having the shades drawn and continues to have no focal neurologic complaints or findings on exam. She has been started on Coumadin; the INRs are being observed. Heparin will be continued until the INR is in a therapeutic range and she should be discharged with a followup in neurology in about 3 weeks or so we can arrange for an outpatient CTA in 3 months. For now, I would suggest perhaps a trial of steroids to treat the migraine. This could be oral or even IV. I would not give it tonight as she runs the risk of not being able to sleep but I would recommend perhaps 80 mg tomorrow morning, 80 the following morning and 60 for two mornings, 40 for two mornings, 20 for two mornings and 10 for two mornings, depending on how she does. Obviously if several doses of steroids break the headache then I would give one more dose and stop at that point. I will check back with her tomorrow.
[2017-01-23 20:16] VITALS: BP 121/79; PULSE 82; TEMP 36.9; O2SAT 94
[2017-01-24] VITALS (8 sets, daily range): BP systolic 97–138; BP diastolic 63–90; PULSE 64–87; TEMP 36.3–37.4; O2SAT 95–98
[2017-01-24 06:33] LABS: INR 1.8 (0.9-1.1); PARTIAL THROMBOPLASTIN RATIO 2.9; PROTHROMBIN TIME (PATIENT) 20.2 SECONDS (9.0-12.0)
[2017-01-24] MEDS: HEPARIN 25,000 UNIT/500ML D5W 500 ML IV PRN ×3 (07:09→14:33)
[2017-01-24] MEDS: MAGNESIUM OXIDE 400 MG TAB PO SCH (07:41)
[2017-01-24] MEDS: ASPIRIN 81 MG ECTAB PO SCH (07:41)
--- NOTE | 2017-01-24 12:37 | Progress Note ---
Internal Med Progress Note Date of Service: Jan 24, 2017. Provider Documentation: SUBJECTIVE: Patient seen and examined at the bedside. Denies neck pain or headaches. denies shortness of breath or chest pain or abdominal pain. OBJECTIVE: Exam: General- no acute distress, sitting comfortably on the bed Eyes- EOMI ENT- no epistaxis Neck- normal range of motion Lungs- clear to auscultation bilaterally, no wheezing, no crackles Heart- regular rate Abdomen- non tender, soft, + bowel sounds Extremities- no edema Neuro- no focal neurological deficits ASSESSMENT & PLAN: Left Vertebral Artery Dissection Head CTA 01/21/17: Severe irregular narrowing of the majority of the cervical portion of the left vertebral artery which extends from the C3 through C7 levels and is consistent with a left vertebral artery dissection Neurology following the patient Continue aspirin 81 mg On heparin IV and receiving Coumadin 5mg daily, INR 1.8 on 01/24/17 patient counseled on avoiding stresses to neck in the future such as neck manipulations, sudden acceleration and deceleration of neck such as experienced in use of firearms or roller coaster rides Migraine headache symptoms resolving, will start steroids if needed DVT PROPHYLAXIS on heparin drip to bridge to coumadin DISPOSITION plan to discharge home once stable therapeutic INR for anticoagulation will need anticoagulation clinic follow up, anticoagulation clinic to call patient will need primary care physician follow up 02/02/2017 11:20 AM Yomi Bates MD [facility] will need followup in neurology in about 3 weeks for re-evaluation and outpatient CTA in 3 months: have scheduled appointment on 02/13/2017 12:35 PM General Neurology [facility] Vital Signs: Date Time Temp Pulse Resp B/P (MAP) Pulse Ox O2 Delivery O2 Flow Rate FiO2 01/24/17 11:49 36.4 84 16 118/79 (92) 97 Room Air 01/24/17 08:15 Room Air 01/24/17 07:25 36.3 74 18 97/63 (74) 97 Room Air 01/24/17 04:00 Room Air 01/24/17 03:58 36.7 64 16 101/66 (78) 98 Room Air 01/24/17 00:20 36.7 74 20 107/70 (82) 98 Room Air 01/24/17 00:00 Room Air 01/23/17 20:16 36.9 82 19 121/79 (93) 94 Room Air 01/23/17 19:20 Room Air 01/23/17 16:25 Room Air 01/23/17 15:47 36.6 73 16 123/79 (94) 97 Room Air Lab Results: Results Past 24 Hours Test 01/24/17 05:57 Range/Units Prothrombin Time 20.2 9.0-12.0 SECONDS Prothromb Time International Ratio 1.8 0.9-1.1 Activated Partial Thromboplast Time 75.1 21.0-31.0 SECONDS Partial Thromboplastin Ratio 2.9
[2017-01-24 13:46] LABS: PARTIAL THROMBOPLASTIN RATIO 2.4
[2017-01-24] MEDS: MoRPHine SULFATE 4 MG/ML 1 ML CARP\\VIAL IV PRN ×2 (14:06→17:37)
[2017-01-24] MEDS: WARFARIN SOD 5 MG TAB PO SCH (15:54)
--- NOTE | 2017-01-24 17:08 | PROGRESS NOTE ---
DATE: 01/24/2017 Debo is actually in pretty good shape this morning. She was headache free and had been free from 8 hours. It was her third day of magnesium oxide and steroids were appropriately held as she seemed improved. Unfortunately now since noon she has had another headache and it is late in the day to start steroids for this one so my recommendation would be to continue magnesium oxide and consider a dose of steroids tomorrow morning if she continues to have the pain. Her INR is still not quite in the therapeutic range and heparin is continuing. She has had no symptoms to suggest embolic events from the left vertebral artery dissection. The MRI have shown no evidence for same and clinically her exam is normal. She would like to go to [place] on a bus trip this Monday. Perhaps we can get her Coumadin adjusted by that time and her headache under control. I will check back with her tomorrow. Hopefully, things will begin to square away. Obviously, I have suggested that she stay away from chiropractic manipulations of her neck for the foreseeable future. ELIZABETH
--- NOTE | 2017-01-24 18:25 | Progress Note ---
Progress Note Date of Service Jan 24, 2017. Progress Note Was called by nurse that patient was feeling clammy after receiving morphine for headache. Patient assessed at bedside. Awake and alert and reported that she wants to vomit. No focal neurological deficits. Patient's hemodynamically stable. EKG in normal sinus rhythm. Patient's sensation likely due to nausea from morphine. Will stop morphine prn. Patient given antiemetics. Patient also to be given solumedrol 10 mg IV for headache. Patient counseled to ask for acetaminophen if further headache. Patient counseled that solumedrol use may cause some insomnia. Patient aware and agrees to plan. Patient to be started on prednisone 40 mg PO tomorrow if solumedrol works to reduce discomfort
[2017-01-24] MEDS ORDERED: METHYLPREDNISOLONE IV 10 MG in SYRINGE 0 ML IV ONE (18:30)
[2017-01-24] MEDS ORDERED: METOCLOPRAMIDE HCL INJ 5 MG/ML 2 ML VIAL IV ONE (18:30)
[2017-01-25 04:00] VITALS: BP 81/52; PULSE 76; TEMP 36.7; O2SAT 97
[2017-01-25 05:44] LABS: BASO % 0.2 %; BASO ABS # 0.03 K/uL (0-0.2); COMPLETE YES; HEMATOCRIT 38.8 % (37-47); IG% 0.3 %; LYMPH ABS # 1.44 K/uL (1.2-3.4); MEAN CORPUSCULAR HGB CONC 33.8 g/dl (32-36); MEAN PLATELET VOLUME 11.4 fL (7.4-10.4); MONO % 4.9 %; NEUT % 84.6 %; PLATELET COUNT 287 K/uL (130-400); RED BLOOD COUNT 4.51 M/uL (4.2-5.4); WHITE BLOOD COUNT 14.43 K/uL (4.8-10.8)
[2017-01-25 05:50] LABS: INR 2.4 (0.9-1.1); PROTHROMBIN TIME (PATIENT) 26.1 SECONDS (9.0-12.0)
[2017-01-25 06:14] LABS: BUN/CREATININE RATIO 16.9 (10-20); CALCIUM 9.1 mg/dl (8.5-10.1); CREATININE 0.59 mg/dl (0.60-1.20); POTASSIUM 4.3 mmol/L (3.5-5.1)
[2017-01-25 06:17] LABS: ALB/GLOB RATIO 0.8 (0.9-2)
[2017-01-25 07:27] VITALS: BP 101/59; PULSE 78; TEMP 36.5; O2SAT 97
[2017-01-25 07:56] LABS: PARTIAL THROMBOPLASTIN RATIO 3.2
[2017-01-25] MEDS: HEPARIN 25,000 UNIT/500ML D5W 500 ML IV PRN ×3 (08:40→16:23)
[2017-01-25] MEDS: ASPIRIN 81 MG ECTAB PO SCH (08:41)
[2017-01-25] MEDS: MAGNESIUM OXIDE 400 MG TAB PO SCH (08:42)
[2017-01-25 12:20] VITALS: BP 144/79; PULSE 82; TEMP 37.1; O2SAT 97
[2017-01-25 15:14] VITALS: BP 120/78; PULSE 93; TEMP 36.8; O2SAT 95
[2017-01-25 15:20] LABS: PARTIAL THROMBOPLASTIN RATIO 2.3
[2017-01-25] MEDS ORDERED: WARFARIN SOD 2 MG TAB PO SCH (16:00)
--- NOTE | 2017-01-25 16:55 | PROGRESS NOTE ---
DATE: 01/25/2017 DATE: 01/25/2017 Debo's headache was getting pretty severe last night. She had some IV morphine that unfortunately made her ill and then she received some IV Solu-Medrol low dose and is now on oral prednisone and her headache is virtually gone. She continues to have no neurologic deficits, neck pain, etc. and feels much better today. Her INRs are coming up on the Coumadin and she may well be with a second INR this afternoon, her levels will be stable and she can be discharged. If so, I would suggest she be started on prednisone 40 mg daily for 3 days, then 20 mg daily for 3 days, 10 mg daily for 3 days and stop and continue the magnesium oxide for headaches. We can see her back in neurology in about 3-4 weeks and follow up with the left vertebral artery dissection and of course she should avoid chiropractic manipulation for the foreseeable future. Her exam remains normal. She is asymptomatic now and I think it would be fine for her to go on a bus trip to [facility] as long as she is careful not to rotate her neck too hard or do anything else that might retraumatize the left vertebral artery which is doubtful. ELIZABETH
--- NOTE | 2017-01-25 19:12 | Progress Note ---
Internal Med Progress Note Date of Service: Jan 25, 2017. Provider Documentation: SUBJECTIVE: Patient seen and examined at the bedside. Denies neck pain or headaches. denies shortness of breath or chest pain or abdominal pain. OBJECTIVE: Exam: General- no acute distress, sitting comfortably on the bed Eyes- EOMI ENT- no epistaxis Neck- normal range of motion Lungs- clear to auscultation bilaterally, no wheezing, no crackles Heart- regular rate Abdomen- non tender, soft, + bowel sounds Extremities- no edema Neuro- no focal neurological deficits ASSESSMENT & PLAN: Migraine headache symptoms resolving: received 40 mg prednisone on 01/25/17; as per neurology the steroid taper plan should be:prednisone 40 mg daily for 3 days , then 20 mg daily for 3 days, 10 mg daily for 3 days and stop continue the magnesium oxide for headaches Left Vertebral Artery Dissection Head CTA 01/21/17: Severe irregular narrowing of the majority of the cervical portion of the left vertebral artery which extends from the C3 through C7 levels and is consistent with a left vertebral artery dissection Neurology following the patient Continue aspirin 81 mg On heparin IV and receiving Coumadin daily, INR 2.4 on 01/25/17, because of concern that INR may be supratherapeutic by 01/26/17, coumadin dose given on has been decreased to 2 mg DVT PROPHYLAXIS on heparin drip to bridge to coumadin until second therapeutic INR expected to be on 01/26/17 DISPOSITION plan to discharge home once stable therapeutic INR for anticoagulation will need anticoagulation clinic follow up, anticoagulation clinic to call patient will need primary care physician follow up 02/02/2017 11:20 AM Yomi Bates MD [facility] will need followup in neurology for re-evaluation and outpatient CTA in 3 months : have scheduled appointment on 02/13/2017 12:35 PM General Neurology [facility] patient counseled on avoiding stresses to neck in the future such as neck manipulations, sudden acceleration and deceleration of neck such as experienced in use of firearms or roller coaster rides Vital Signs: Date Time Temp Pulse Resp B/P (MAP) Pulse Ox O2 Delivery O2 Flow Rate FiO2 01/25/17 16:00 Room Air 01/25/17 15:14 36.8 93 16 120/78 (92) 95 Room Air 01/25/17 12:20 37.1 82 18 144/79 (100) 97 Room Air 01/25/17 12:00 Room Air 01/25/17 08:00 Room Air 01/25/17 07:27 36.5 78 16 101/59 (73) 97 Room Air 01/25/17 04:00 Room Air 01/25/17 04:00 36.7 76 17 81/52 (62) 97 Room Air 01/25/17 00:00 Room Air 01/24/17 23:52 37.4 79 20 108/68 (81) 95 Room Air 01/24/17 20:00 Room Air 01/24/17 19:28 36.9 83 20 107/68 (81) 98 Lab Results: Results Past 24 Hours Test 01/25/17 05:18 01/25/17 07:21 01/25/17 14:50 Range/Units White Blood Count 14.43 4.8-10.8 K/uL Red Blood Count 4.51 4.2-5.4 M/uL Hemoglobin 13.1 12.0-16.0 g/dL Hematocrit 38.8 37-47 % Mean Corpuscular Volume 86.0 80-100 fL Mean Corpuscular Hemoglobin 29.0 25-34 pg Mean Corpuscular Hemoglobin Concent 33.8 32-36 g/dl Platelet Count 287 130-400 K/uL Mean Platelet Volume 11.4 7.4-10.4 fL Neutrophils (%) (Auto) 84.6 % Lymphocytes (%) (Auto) 10.0 % Monocytes (%) (Auto) 4.9 % Eosinophils (%) (Auto) 0.0 % Basophils (%) (Auto) 0.2 % Neutrophils # (Auto) 12.22 1.4-6.5 K/uL Lymphocytes # (Auto) 1.44 1.2-3.4 K/uL Monocytes # (Auto) 0.70 0.11-0.59 K/uL Eosinophils # (Auto) 0.00 0-0.5 K/uL Basophils # (Auto) 0.03 0-0.2 K/uL RDW Standard Deviation 41.2 36.4-46.3 fL RDW Coefficient of Variation 13.0 11.5-14.5 % Immature Granulocyte % (Auto) 0.3 % Immature Granulocyte # (Auto) 0.04 0.00-0.02 K/uL Prothrombin Time 26.1 9.0-12.0 SECONDS Prothromb Time International Ratio 2.4 0.9-1.1 Sodium Level 131 136-145 mmol/L Potassium Level 4.3 3.5-5.1 mmol/L Chloride Level 101 98-107 mmol/L Carbon Dioxide Level 26 21-32 mmol/L Anion Gap 4.0 3-11 mmol/L Blood Urea Nitrogen 10 7-18 mg/dl Creatinine 0.59 0.60-1.20 mg/dl Est Creatinine Clear Calc Drug Dose 136.4 ml/min Estimated GFR () 138.6 Estimated GFR (Non- 119.6 BUN/Creatinine Ratio 16.9 10-20 Random Glucose 137 70-99 mg/dl Calcium Level 9.1 8.5-10.1 mg/dl Total Bilirubin 0.2 0.2-1 mg/dl Aspartate Amino Transf (AST/SGOT) 73 15-37 U/L Alanine Aminotransferase (ALT/SGPT) 115 12-78 U/L Alkaline Phosphatase 81 45-117 U/L Total Protein 7.9 6.4-8.2 gm/dl Albumin 3.6 3.4-5.0 gm/dl Globulin 4.3 2.5-4.0 gm/dl Albumin/Globulin Ratio 0.8 0.9-2 Activated Partial Thromboplast Time 82.1 59.2 21.0-31.0 SECONDS Partial Thromboplastin Ratio 3.2 2.3
[2017-01-25 19:38] VITALS: BP 117/79; PULSE 100; TEMP 36.4; O2SAT 95
[2017-01-25 23:19] VITALS: BP 119/77; PULSE 85; TEMP 37; O2SAT 97
[2017-01-26 07:10] LABS: HEMATOCRIT 39.6 % (37-47); MEAN CELL VOLUME 86.8 fL (80-100); MEAN CORPUSCULAR HEMOGLOBIN 28.9 pg (25-34); MEAN CORPUSCULAR HGB CONC 33.3 g/dl (32-36); PLATELET COUNT 295 K/uL (130-400); RED BLOOD COUNT 4.56 M/uL (4.2-5.4); WHITE BLOOD COUNT 13.56 K/uL (4.8-10.8)
[2017-01-26 07:28] LABS: INR 2.7 (0.9-1.1); PARTIAL THROMBOPLASTIN RATIO 2.9; PROTHROMBIN TIME (PATIENT) 30.6 SECONDS (9.0-12.0)
[2017-01-26] MEDS ORDERED: ASPEC81 PO (07:52)
[2017-01-26] MEDS ORDERED: MGNO400 PO (07:52)
[2017-01-26] MEDS ORDERED: CMP5 PO (07:52)
[2017-01-26] MEDS ORDERED: CMD2 PO (07:52)
[2017-01-26] MEDS ORDERED: PRD20 PO (08:00)
[2017-01-26 08:03] VITALS: BP 119/80; PULSE 71; TEMP 36.7; O2SAT 97
--- NOTE | 2017-01-26 08:33 | Progress Note ---
Internal Med Progress Note Date of Service: Jan 26, 2017. Provider Documentation: SUBJECTIVE: Patient seen and examined at the bedside. Denies neck pain or headaches. denies shortness of breath or chest pain or abdominal pain. OBJECTIVE: Exam: General- no acute distress, sitting comfortably on the bed Eyes- EOMI ENT- no epistaxis Neck- normal range of motion Lungs- clear to auscultation bilaterally, no wheezing, no crackles Heart- regular rate Abdomen- non tender, soft, + bowel sounds Extremities- no edema Neuro- no focal neurological deficits ASSESSMENT & PLAN: Migraine headache symptoms resolving: received 40 mg prednisone on 01/25/17; as per neurology the steroid taper plan should be:prednisone 40 mg daily for 3 days , then 20 mg daily for 3 days, 10 mg daily for 3 days and stop continue the magnesium oxide for headaches Left Vertebral Artery Dissection Head CTA 01/21/17: Severe irregular narrowing of the majority of the cervical portion of the left vertebral artery which extends from the C3 through C7 levels and is consistent with a left vertebral artery dissection Neurology following the patient Continue aspirin 81 mg On heparin IV and receiving Coumadin daily, INR 2.4 on 01/25/17, because of concern that INR may be supratherapeutic by 01/26/17, coumadin dose given on has been decreased to 2 mg. INR check on 01/26/27 as 2.7. Patient will be discharged on coumadin 2 mg daily with follow up to anticoagulation clinic and primary care doctor for further coumadin adjustment and INR checks DVT PROPHYLAXIS on heparin drip to bridge to coumadin until second therapeutic INR expected to be on 01/26/17 DISPOSITION plan to discharge home once stable therapeutic INR for anticoagulation will need anticoagulation clinic follow up, anticoagulation clinic to call patient will need primary care physician follow up 02/02/2017 11:20 AM Yomi Bates MD [facility] will need followup in neurology for re-evaluation and outpatient CTA in 3 months : have scheduled appointment on 02/13/2017 12:35 PM General Neurology [facility] patient counseled on avoiding stresses to neck in the future such as neck manipulations, sudden acceleration and deceleration of neck such as experienced in use of firearms or roller coaster rides Vital Signs: Date Time Temp Pulse Resp B/P (MAP) Pulse Ox O2 Delivery O2 Flow Rate FiO2 01/26/17 08:03 36.7 71 20 119/80 (93) 97 01/26/17 08:00 Room Air 01/26/17 04:00 Room Air 01/26/17 00:00 Room Air 01/25/17 23:19 37.0 85 20 119/77 (91) 97 Room Air 01/25/17 20:00 Room Air 01/25/17 19:38 36.4 100 18 117/79 (92) 95 Room Air 01/25/17 16:00 Room Air 01/25/17 15:14 36.8 93 16 120/78 (92) 95 Room Air 01/25/17 12:20 37.1 82 18 144/79 (100) 97 Room Air 01/25/17 12:00 Room Air Lab Results: Results Past 24 Hours Test 01/25/17 14:50 01/26/17 06:43 Range/Units Activated Partial Thromboplast Time 59.2 74.5 21.0-31.0 SECONDS Partial Thromboplastin Ratio 2.3 2.9 White Blood Count 13.56 4.8-10.8 K/uL Red Blood Count 4.56 4.2-5.4 M/uL Hemoglobin 13.2 12.0-16.0 g/dL Hematocrit 39.6 37-47 % Mean Corpuscular Volume 86.8 80-100 fL Mean Corpuscular Hemoglobin 28.9 25-34 pg Mean Corpuscular Hemoglobin Concent 33.3 32-36 g/dl RDW Standard Deviation 42.2 36.4-46.3 fL RDW Coefficient of Variation 13.2 11.5-14.5 % Platelet Count 295 130-400 K/uL Mean Platelet Volume 12.0 7.4-10.4 fL Prothrombin Time 30.6 9.0-12.0 SECONDS Prothromb Time International Ratio 2.7 0.9-1.1
--- NOTE | 2017-01-26 08:37 | Discharge Instructions ---
Discharge Instructions Date of Service Jan 26, 2017. Admission Reason for Admission: Dissection, Vertebral Artery Discharge Discharge Diagnosis / Problem: vertebral artery dissection, on anticoagulation , migraine headache Discharge Goals Goal(s): Decrease discomfort, Improve function Activity Recommendations Activity Limitations: per Instructions/Follow-up section Lifting Limitations: until after follow-up appointment Exercise/Sports Limitations: until after follow-up appointment Shower/Bathe: no limitations . Instructions / Follow-Up Instructions / Follow-Up Migraine headache symptoms resolving: received 40 mg prednisone on 01/25/17; as per neurology the steroid taper plan should be:prednisone 40 mg daily for 3 days , then 20 mg daily for 3 days, 10 mg daily for 3 days and stop continue the magnesium oxide for headaches Left Vertebral Artery Dissection Head CTA 01/21/17: Severe irregular narrowing of the majority of the cervical portion of the left vertebral artery which extends from the C3 through C7 levels and is consistent with a left vertebral artery dissection Neurology following the patient Continue aspirin 81 mg On heparin IV and receiving Coumadin daily, INR 2.4 on 01/25/17, because of concern that INR may be supratherapeutic by 01/26/17, coumadin dose given on has been decreased to 2 mg. INR check on 01/26/27 as 2.7. Patient will be discharged on coumadin 2 mg daily with follow up to anticoagulation clinic and primary care doctor for further coumadin adjustment and INR checks DVT PROPHYLAXIS on heparin drip to bridge to coumadin until second therapeutic INR expected to be on 01/26/17 DISPOSITION will need anticoagulation clinic follow up, anticoagulation clinic to call patient will need primary care physician follow up 02/02/2017 11:20 AM Yomi Bates MD [facility] will need followup in neurology for re-evaluation and outpatient CTA in 3 months : have scheduled appointment on 02/13/2017 12:35 PM General Neurology [facility] patient counseled on avoiding stresses to neck in the future such as neck manipulations, sudden acceleration and deceleration of neck such as experienced in use of firearms or roller coaster rides Current Hospital Diet Patient's current hospital diet: Regular Diet Discharge Diet Recommended Diet: Regular Diet Pending Studies Studies pending at discharge: no Laboratory Results 01/26/17 06:43 01/25/17 05:18 Test 01/21/17 17:20 01/21/17 17:27 11/25/17 19:03 01/25/17 05:18 Direct Bilirubin < 0.1 mg/dl (0-0.2) Lipase 142 U/L (73-393) Human Chorionic Gonadotropin, Qual NEG (NEG) Bedside Hemoglobin 13.3 g/dl (12.0-16.0) Bedside Hematocrit 39 % (37-47) Bedside Sodium 138 mEq/L (135-144) Bedside Potassium 3.9 mEq/L (3.3-5.0) Bedside Chloride 103 mEq/L (101-112) Bedside Total CO2 25 mEq/l (24-31) Bedside Blood Urea Nitrogen 12 mg/dl (7-18) Bedside Creatinine 0.8 mg/dl (0.6-1.3) Bedside Glucose (other) 120 mg/dl (70-99) Bedside Ionized Calcium (Lynette) 1.23 mmol/l (1.12-1.32) Urine Color YELLOW Urine Appearance CLEAR (CLEAR) Urine pH 6.5 (4.5-7.5) Urine Specific [place] 1.009 (1.000-1.030) Urine Protein NEG (NEG) Urine Glucose (UA) NEG (NEG) Urine Ketones NEG (NEG) Urine Occult Blood NEG (NEG) Urine Nitrite NEG (NEG) Urine Bilirubin NEG (NEG) Urine Urobilinogen NEG (NEG) Urine Leukocyte Esterase NEG (NEG) Immature Granulocyte % (Auto) 0.3 % White Blood Count 14.43 K/uL (4.8-10.8) Red Blood Count 4.51 M/uL (4.2-5.4) Hemoglobin 13.1 g/dL (12.0-16.0) Hematocrit 38.8 % (37-47) Mean Corpuscular Volume 86.0 fL (80-100) Mean Corpuscular Hemoglobin 29.0 pg (25-34) Mean Corpuscular Hemoglobin Concent 33.8 g/dl (32-36) Platelet Count 287 K/uL (130-400) Mean Platelet Volume 11.4 fL (7.4-10.4) Neutrophils (%) (Auto) 84.6 % Lymphocytes (%) (Auto) 10.0 % Monocytes (%) (Auto) 4.9 % Eosinophils (%) (Auto) 0.0 % Basophils (%) (Auto) 0.2 % Neutrophils # (Auto) 12.22 K/uL (1.4-6.5) Lymphocytes # (Auto) 1.44 K/uL (1.2-3.4) Monocytes # (Auto) 0.70 K/uL (0.11-0.59) Eosinophils # (Auto) 0.00 K/uL (0-0.5) Basophils # (Auto) 0.03 K/uL (0-0.2) Immature Granulocyte # (Auto) 0.04 K/uL (0.00-0.02) Anion Gap 4.0 mmol/L (3-11) Est Creatinine Clear Calc Drug Dose 136.4 ml/min Estimated GFR () 138.6 Estimated GFR (Non- 119.6 BUN/Creatinine Ratio 16.9 (10-20) Calcium Level 9.1 mg/dl (8.5-10.1) Total Bilirubin 0.2 mg/dl (0.2-1) Aspartate Amino Transf (AST/SGOT) 73 U/L (15-37) Alanine Aminotransferase (ALT/SGPT) 115 U/L (12-78) Alkaline Phosphatase 81 U/L (45-117) Total Protein 7.9 gm/dl (6.4-8.2) Albumin 3.6 gm/dl (3.4-5.0) Globulin 4.3 gm/dl (2.5-4.0) Albumin/Globulin Ratio 0.8 (0.9-2) Test 01/26/17 06:43 Red Blood Count 4.56 M/uL (4.2-5.4) Mean Corpuscular Volume 86.8 fL (80-100) Mean Corpuscular Hemoglobin 28.9 pg (25-34) Mean Corpuscular Hemoglobin Concent 33.3 g/dl (32-36) RDW Standard Deviation 42.2 fL (36.4-46.3) RDW Coefficient of Variation 13.2 % (11.5-14.5) Mean Platelet Volume 12.0 fL (7.4-10.4) Prothrombin Time 30.6 SECONDS (9.0-12.0) Prothromb Time International Ratio 2.7 (0.9-1.1) Activated Partial Thromboplast Time 74.5 SECONDS (21.0-31.0) Partial Thromboplastin Ratio 2.9 Medical Emergencies . Who to Call and When: Medical Emergencies: If at any time you feel your situation is an emergency, please call 911 immediately. . Non-Emergent Contact Non-Emergency issues call your: Primary Care Provider Call Non-Emergent contact if: you have any medication questions . . "Provider Documentation" section prepared by Alonso Juárez. . VTE Core Measure Inpt VTE Proph given/why not?: Warfarin (Coumadin), Other Anticoagulation ( heparin IV with bridge to coumadin)
--- NOTE | 2017-01-26 08:40 | Discharge Summary ---
Discharge Summary Date of Service Jan 26, 2017. Discharge Summary Admission Date: Jan 21, 2017 at 21:17 Discharge Date: Jan 26, 2017 Discharge Disposition: Home Principal Diagnosis: vertebral artery dissection, migraine headache, anticoagulation from IV heparin to oral Coumadin, anticoagulation monitoring Medication Reconciliation New Medications: Aspirin (Aspirin EC Low Dose) 81 Mg Ectab 81 MG PO QAM for 30 Days, #30 TAB Magnesium Oxide (Magnesium-Oxide) 400 Mg Tab 400 MG PO QAM for 30 Days, #30 TAB Prednisone (Prednisone) 20 Mg Tab 20 MG PO DAILY for 9 Days, #11 TAB 40 mg daily for 3 days, then 20 mg daily for 3 days, 10 mg daily for 3 days Prochlorperazine Maleate (Prochlorperazine Maleate) 5 Mg Tab 5 MG PO Q6 PRN for nausea for 10 Days, #40 TAB Warfarin Sod (Coumadin) 2 Mg Tab 2 MG PO DAILY@16 for 30 Days, #30 TAB Admission Information HPI (per Admitting provider): This is a 32 year old female with no significant past medical history presents with a few day history of headache, states that she also had neck pain and back pain associated with the headache. She states that it is worse with light - she was once on Imitrex for migraines. She also developed significant neck pain - she was seen by a chiropractor yesterday and had some treatment done on her neck /back and states that it helped with her pain. She continued to have headaches though, so presented for evaluation. She had CTA of the head/neck which suggested L vertebral artery dissection. Neurology was consulted and they recommended anticoagulation and MRI/MRA of head/neck. Patient continues to have neck and R sided pain. Denies fevers/chills, denies chest pain/shortness of breath/nausea/vomiting/diarrhea. Physical Exam (per Admitting): General Appearance: WD/WN, + mild distress (secondary to pain) Head: normocephalic, atraumatic Eyes: normal inspection, PERRL, EOMI ENT: normal ENT inspection, hearing grossly normal Neck: + pertinent finding (cervical muscle spasm; tenderness to palpation) Respiratory/Chest: chest non-tender, lungs clear, normal breath sounds, no respiratory distress, no accessory muscle use Cardiovascular: regular rate, rhythm, no edema, no gallop, no JVD, no murmur , normal peripheral pulses Abdomen/GI: normal bowel sounds, non tender, soft Back: normal inspection, no CVA tenderness, no muscle spasm, normal range of motion Extremities/Musculoskelatal: normal inspection, no calf tenderness, normal capillary refill, no pedal edema, normal range of motion 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/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: 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 as tested, no motor/sensory deficits, alert , normal mood/affect, oriented x 3 Skin: normal color Lymphatic: no adenopathy Hospital Course Migraine headache symptoms resolving: received 40 mg prednisone on 01/25/17; as per neurology the steroid taper plan should be:prednisone 40 mg daily for 3 days , then 20 mg daily for 3 days, 10 mg daily for 3 days and stop continue the magnesium oxide for headaches Left Vertebral Artery Dissection Head CTA 01/21/17: Severe irregular narrowing of the majority of the cervical portion of the left vertebral artery which extends from the C3 through C7 levels and is consistent with a left vertebral artery dissection Neurology following the patient Continue aspirin 81 mg On heparin IV and receiving Coumadin daily, INR 2.4 on 01/25/17, because of concern that INR may be supratherapeutic by 01/26/17, coumadin dose given on has been decreased to 2 mg. INR check on 01/26/27 as 2.7. Patient will be discharged on coumadin 2 mg daily with follow up to anticoagulation clinic and primary care doctor for further coumadin adjustment and INR checks DVT PROPHYLAXIS on heparin drip to bridge to coumadin until second therapeutic INR expected to be on 01/26/17 DISPOSITION will need anticoagulation clinic follow up, anticoagulation clinic to call patient will need primary care physician follow up 02/02/2017 11:20 AM Yomi Bates MD [facility] will need followup in neurology for re-evaluation and outpatient CTA in 3 months : have scheduled appointment on 02/13/2017 12:35 PM General Neurology [facility] patient counseled on avoiding stresses to neck in the future such as neck manipulations, sudden acceleration and deceleration of neck such as experienced in use of firearms or roller coaster rides Total time spent on discharge = 60 minutes This includes examination of the patient, discharge planning, medication reconciliation, and communication with other providers. Discharge Instructions see above
[2017-01-26] MEDS: ASPIRIN 81 MG ECTAB PO SCH (09:01)
[2017-01-26] MEDS: MAGNESIUM OXIDE 400 MG TAB PO SCH (09:02)
[2017-01-26 09:07] VITALS: BP 119/80; PULSE 71; TEMP 36.7; O2SAT 97
== END 2017-01-26 09:34 | disposition home or self-care (01) | DRG 300 ==
LOC: C.EDB 16:41 → C.2E 21:17 → ENRESERV 21:30 → C.MED 01-22 23:23
PROVIDERS: ADMIT Family Medicine; ATTEND Hospitalist
DX: I77.74 Dissection of vertebral artery (principal); K50.90 Crohn's disease, unspecified, without complications; K21.9 Gastro-esophageal reflux disease without esophagitis; Z83.3 Family history of diabetes mellitus; Z82.49 Family history of ischemic heart disease and other diseases of the circulatory system; G43.909 Migraine, unspecified, not intractable, without status migrainosus

== ENCOUNTER → 2017-04-25 | Outpatient (CLI) | payer BC ==
[~2017-04-25] MED LIST: ASPEC81 PO; CMD2 PO; CMP5 PO; MGNO400 PO; OPTIRAY 320 IV PRN; PRD20 PO
--- NOTE | 2017-04-25 10:24 | DIAGNOSTIC IMAGING REPORT ---
NECK ANGIO WITH CONTRAST CLINICAL HISTORY: 32 years-old Female with 3 MONTH F/UP LEFT VERTEBRAL ARTERY DISSECTION, IV ONLY PER RAD.. 3 month follow-up in a patient with left vertebral artery dissection COMPARISON STUDY: CTA of the neck 01/21/2017, MRA neck 01/22/2017. TECHNIQUE: Following the IV administration of 93 of Optiray 320, CT angiogram of the neck was performed from the aortic arch to the skull base. Images are reviewed in the axial, sagittal, and coronal planes. 3-D MIPS images are created and assessed. IV contrast was administered without complication. All measurements were calculated based on NASCET criteria. A dose lowering technique was utilized adhering to the principles of ALARA. CT DOSE: 391.35 mGy.cm FINDINGS: Three-vessel aortic arch is noted. Imaged bilateral subclavian arteries are widely patent. The bilateral common and internal carotid arteries are widely patent. The imaged bilateral middle and anterior cerebral arteries also appear patent. The right vertebral artery is widely patent and within normal limits. There is improved appearance of the left vertebral artery which now appears to be normal in caliber and is widely patent with previously described dissection no longer identified. No vessel occlusion, high-grade stenosis or aneurysm. The basilar artery is widely patent and appears normal. origin of the left posterior cerebral artery. Bilateral posterior cerebral arteries appear patent. Lung apices appear clear. Thyroid appears prominent in size without focal lesion identified. No cervical adenopathy identified. Image intracranial structures demonstrate no acute abnormality. Mastoid air cells and middle ear cavities are clear. Mild mucosal thickening of the posterior inferior left maxillary sinus. Straightening of the normal cervical lordosis. IMPRESSION: 1. Markedly improved appearance of the left vertebral artery which is now widely patent without evidence of previously described long segment dissection. No high-grade stenosis, aneurysm or proximal branch occlusion identified. 2. Bilateral common and internal carotid arteries are also widely patent and within normal limits as is the right vertebral artery. The above report was generated using voice recognition software. It may contain grammatical, syntax or spelling errors. Electronically signed by: Onel Lynn M.D. 04/25/2017 10:23 AM Dictated Date/Time: 04/25/2017 10:11 AM
== END | disposition home or self-care (01) ==
LOC: C.CTS 09:37
PROVIDERS: ATTEND Nurse Practitioner Adult Health
DX: I77.74 Dissection of vertebral artery (principal); G43.709 Chronic migraine without aura, not intractable, without status migrainosus

== ENCOUNTER → 2017-10-16 | Day surgery (SDC) | payer BC ==
[2017-09-06 15:57] VITALS: Ht 162.6 cm; Wt 85.0 kg
[~2017-10-16] VITALS: Ht 162.6 cm; Wt 85.0 kg
[~2017-10-16] MED LIST changes: +ACET-1256 PO; -ASPEC81 PO; +ATROPINE SULFATE 0.1 MG/ML 5ML SYR IV PRN; +BUPIVACAINE 0.5 % 5 MG/1 ML PF 10ML VIAL ONE; +CHECK SCOPOLAMINE PATCH PLACEMENT SCH; -CMD2 PO; -CMP5 PO; +DEXAMETHASONE SOD INJ 4 MG/ML VIAL ONE; +EpHEDrine SULFATE INJ 50 MG/ML AMP IV PRN; +FENTANYL CITRATE INJ 50 MCG/1 ML 2 ML VIAL ONE; +GABA-112 PO; +GLYCOPYRROLATE INJ 0.2 MG/ML VIAL ONE; +IBUPROFEN 600 MG TAB PO PRN; +KETOROLAC TROMETHAMINE 30 MG/ML VIAL IV. PRN; +KETOROLAC TROMETHAMINE 30 MG/ML VIAL ONE; +LACTATED RINGER'S 1000ML 1,000 ML IV SCH; +LIDOCAINE HCL 2% 2 ML VIAL (20MG/ML) ONE; -MGNO400 PO; +MIDAZOLAM HCL 1 MG/ML 2ML VIAL ONE; +NEOSTIGMINE METHYLSULFATE 5 MG/5 ML SYR ONE; +NURSING VERBAL MED ORDER ONE; -OPTIRAY 320 IV PRN; +OXYC-57 PO; +OXYCODONE/ACETAMINOPHEN 5-325 TAB PO PRN; -PRD20 PO; +PROC5TAB PO; +PROMETHAZINE HCL INJ 25 MG in SODIUM CHLORIDE 0.9% 50ML 50 ML IV PRN; +PROMETHAZINE HCL INJ 25 MG/ML 1 ML VIAL ONE; +PROPOFOL IV EMULSION 10 MG/ML 20 ML VIAL ONE; +ROCURONIUM BROMIDE 10 MG/ML 5 ML VIAL ONE; +SCOPOLAMINE 1.5 MG TDSY TD ONE; +SODIUM CHLORIDE 0.9% 1000ML 1,000 ML IV SCH
--- NOTE | 2017-10-16 06:57 | History & Physical Bridge - SC ---
H&P Re-Evaluation Bridge Note: I have examined the patient, reviewed the History & Physical and in the interval since the performance of the History & Physical I have noted the following changes of clinical significance Possible removal of endometrial polyp: No changes noted
--- NOTE | 2017-10-16 08:17 | [facility] Post Operative Brief Note ---
Immediate Operative Summary Operative Date Oct 16, 2017. Pre-Operative Diagnosis Request for sterilization Menorrhagia IUD strings lost Abnormal menses Post-Operative Diagnosis Same as pre-op Procedure(s) Performed Bilateral Salpingectomy; Dilation And Curettage, Endometrial Ablation with Novasure, Intrauterine Device Removal Surgeon Fundraising Manager Surgeon(s) None Estimated Blood Loss 10ML Findings Consistent with Post-Op Diagnosis Specimens A.Endometrial curettings B.Explanted IUD C.Bilateral Fallopian tubes Drains None Anesthesia Type General Complication(s) none Disposition Accompanied Pt To Recover: no Disposition: Recovery Room / PACU
--- NOTE | 2017-10-16 08:18 | Discharge Instructions ---
Discharge Instructions Date of Service Oct 16, 2017. Admission Reason for Admission: Request For Sterilization, Menorrhagia Discharge Discharge Diagnosis / Problem: MENORRHAGIA, REQUESTS STERILIZATION Discharge Goals Goal(s): Routine recovery after surgery Activity Recommendations Activity Limitations: per Instructions/Follow-up section . Instructions / Follow-Up Instructions / Follow-Up ACTIVITY RECOMMENDATIONS: * Rest the first 2-3 days. You should be back to your normal activity levels by day 3. * No heavy lifting for 2 weeks. * No intercourse, tampons or douching for 1-2 weeks. * You may shower the next day. * Do not drive anytime that you are taking narcotic pain medicines. RETURN TO SCHOOL/WORK: * May return to school or work after 2-3 days. DIET: Nausea may occur in the immediate post-operative period. If so, take clear liquids such as tea, bouillon, apple juice until all nausea has subsided, then resume usual diet. MEDICATIONS: Resume previous medications unless instructed otherwise by your surgeon. Ibuprofen 200mg 2-3 tablets every 4-6 hours as needed -- OR -- Aleve 2 tablets every 8-12 hours as needed for post-operative discomfort Medications are over the counter. Tylenol may be used if above medications are contraindicated or not preferred. Medication should be taken with food or milk. Do not take on an empty stomach. SPECIAL CARE INSTRUCTIONS: * Check temperature twice daily for one week. report any elevation over 101 degrees. * You may experience some vagina spotting and/or bleeding. This is normal for 1 -2 weeks and should not be heavier than a normal period. If it is unusual in amount, call your physician. * Post-operative discomfort may consist of a sore throat, a "bloated" feeling and pain in the shoulders. these are normal symptoms, which usually only last for 2-3 days. * Remove band-aids tomorrow and shower. There is no need to replace band-aids unless there is drainage or discomfort. FOLLOW UP VISIT: Call your doctor's office for a post-operative 2 week visit if not already scheduled. Current Hospital Diet Patient's current hospital diet: Discharge Diet Recommended Diet: Regular Diet Procedures Procedures Performed: Bilateral Salpingectomy; Dilation And Curettage, Endometrial Ablation with Novasure, Intrauterine Device Removal Pending Studies Studies pending at discharge: no Medical Emergencies . Who to Call and When: Medical Emergencies: If at any time you feel your situation is an emergency, please call 911 immediately. . Non-Emergent Contact Non-Emergency issues call your: [employer] . . "Provider Documentation" section prepared by Easton Vegas. .
--- NOTE | 2017-10-16 08:40 | OPERATIVE REPORT ---
DATE OF OPERATION: 10/16/2017 PREOPERATIVE DIAGNOSIS: Request for sterilization, menorrhagia, intrauterine device strings lost. POSTOPERATIVE DIAGNOSIS: Same. PROCEDURE: Hysteroscopic endometrial ablation and dilatation and curettage, removal of intrauterine device, bilateral laparoscopic salpingectomy. SURGEON: Easton Vegas MD. MAPPING SPECIALIST: Dr. Li, resident. ESTIMATED BLOOD LOSS: 10 mL. FINDINGS: Consistent with postoperative diagnosis. SPECIMENS: Endometrial curetting, removed IUD, and bilateral fallopian tubes. DRAINS: None. ANESTHETIC: General. COMPLICATIONS: None. DISPOSITION: Recovery room. DESCRIPTION OF PROCEDURE: Debo was given a general anesthetic, prepped and draped in dorsal lithotomy position in [facility]. Bladder drained. Uterus examined and was found to be axial in position, normal size. A weighted speculum placed in the vagina. Allis clamp used to grasp the anterior lip of the cervix. Cervix methodically dilated starting with a #13 dilator and finishing with a #27 dilator. On inspection with a 5 mm hysteroscope, I was able to view the cavity, which appeared normal. It should be noted we removed the IUD just prior to this with polyp forceps. There was no perforation visible, and both tubal ostia were seen. Measurements were taken. The cavity length was 9cm, fundus 5 cm. NovaSure was deployed at a width of 4 cm, and then we ablated after passing the carbon dioxide cavity integrity test first. Once the NovaSure was removed, reinspected with hysteroscope. Cavity was well ablated. No sign of perforation. An acorn cervical manipulator was attached to the cervix, attached to the Allis. Gloves changed, and then attention was to the laparoscopy. She had a prior laparoscopic incision subumbilically. This was used and cut with scalpel. Using open technique, we did a cut down through subcutaneous fat to the fascia splitting the rectus muscles and then entering the peritoneal cavity without difficulty. Blunt-tipped Eleazar trocar was then placed. Balloon inflated to stabilize the port. CO2 gas used to insufflate the abdomen. Findings with upper abdomen normal, no sign of visceral organ injury. Deep Trendelenburg position then obtained. Fallopian tubes, adnexa, uterus appeared normal. Two 5 mm ports were placed on the left side of the patient, and then using Harmonic scalpel and a grasper, we were able to remove the fallopian tubes, first the left and then the right, staying careful to avoid surrounding structures, and both fallopian tubes were removed. We then, instead of a 10 mm scope, used a 5 mm scope, and we were able to grasp both fallopian tubes with a nontraumatic grasper, removed through the 10 mm port. After irrigation and suction, there was a small area of bleeding that was coagulated with a bipolar Kleppinger on the right side of the mesosalpinx, and this became hemostatic after coagulation. At this stage, hemostasis was excellent. Instruments were removed under direct visualization. Gas allowed to escape. It should be noted we did perform a low carbon dioxide test as well, and there was no bleeding. Incisions all injected with 0.5% Marcaine. Fascia closed with UR6 0 Vicryl and then subcutaneous fat irrigated. Skin closed with 4-0 subcuticular Monocryl. Dermabond applied. Instruments removed from the cervix and vagina. Sponge and instrument counts were correct. I attest to the content of the Intraoperative Record and any orders documented therein. Any exceptions are noted below. MTDD
[2017-10-16] MEDS: FENTANYL CITRATE INJ 50 MCG/1 ML 2 ML VIAL IV PRN ×2 (08:50→08:56)
--- NOTE | 2017-10-16 09:14 | Anesthesia Progress Nt - [facility] ---
Anesthesia Post Op Note Date & Time Oct 16, 2017 at 09:14 Vital Signs Pain Intensity: 6 Vital Signs Past 12 Hours Date Time Temp Pulse Resp B/P (MAP) Pulse Ox O2 Delivery O2 Flow Rate FiO2 10/16/17 09:12 36.5 10/16/17 09:11 121/71 (92) 10/16/17 09:08 77 18 10/16/17 09:08 76 18 92 10/16/17 09:07 120/78 (92) 10/16/17 09:03 74 17 99 10/16/17 09:03 74 17 10/16/17 09:01 113/73 (76) 10/16/17 08:59 Room Air 10/16/17 08:58 79 19 10/16/17 08:58 79 19 100 10/16/17 08:56 119/70 (93) 10/16/17 08:53 69 19 10/16/17 08:53 69 19 99 10/16/17 08:51 121/74 (91) 10/16/17 08:48 75 26 10/16/17 08:48 73 26 97 10/16/17 08:47 132/64 (105) 10/16/17 08:43 72 25 96 10/16/17 08:43 71 25 10/16/17 08:41 126/61 (84) 10/16/17 08:38 73 22 10/16/17 08:38 72 22 99 10/16/17 08:36 125/86 (100) 10/16/17 08:33 68 22 10/16/17 08:33 68 22 97 10/16/17 08:31 120/63 (81) 10/16/17 08:28 70 26 99 10/16/17 08:28 70 26 10/16/17 08:26 128/70 (82) 10/16/17 08:26 134/63 (96) 10/16/17 08:26 36.3 71 16 128/70 100 Diffusion Mask 5 10/16/17 06:40 36.9 75 18 114/76 (89) 98 Room Air Notes Mental Status: alert / awake / arousable, participated in evaluation Pt Amnestic to Procedure: Yes Nausea / Vomiting: adequately controlled Pain: adequately controlled Airway Patency, RR, SpO2: stable & adequate BP & HR: stable & adequate Hydration State: stable & adequate Anesthetic Complications: no major complications apparent
[2017-10-16 09:30] VITALS: TEMP 36.3
[2017-10-16 10:17] VITALS: BP 127/85; PULSE 86; O2SAT 97
== END | disposition home or self-care (01) ==
LOC: X.SURG 06:25
PROVIDERS: ATTEND Obstetrics & Gynecology
DX: N92.0 Excessive and frequent menstruation with regular cycle (principal); Z30.2 Encounter for sterilization; Z30.432 Encounter for removal of intrauterine contraceptive device; N84.0 Polyp of corpus uteri; N83.8 Other noninflammatory disorders of ovary, fallopian tube and broad ligament; Z88.2 Allergy status to sulfonamides; Z88.5 Allergy status to narcotic agent

== ENCOUNTER 2017-10-24 19:22 | Emergency (ER) | payer BC ==
[~2017-10-24] VITALS: Ht 162.6 cm; Wt 87.3 kg
[~2017-10-24 19:22] MED LIST changes: -ATROPINE SULFATE 0.1 MG/ML 5ML SYR IV PRN; -BUPIVACAINE 0.5 % 5 MG/1 ML PF 10ML VIAL ONE; -CHECK SCOPOLAMINE PATCH PLACEMENT SCH; -DEXAMETHASONE SOD INJ 4 MG/ML VIAL ONE; -EpHEDrine SULFATE INJ 50 MG/ML AMP IV PRN; -FENTANYL CITRATE INJ 50 MCG/1 ML 2 ML VIAL ONE; -GLYCOPYRROLATE INJ 0.2 MG/ML VIAL ONE; -IBUPROFEN 600 MG TAB PO PRN; -KETOROLAC TROMETHAMINE 30 MG/ML VIAL IV. PRN; -KETOROLAC TROMETHAMINE 30 MG/ML VIAL ONE; -LACTATED RINGER'S 1000ML 1,000 ML IV SCH; -LIDOCAINE HCL 2% 2 ML VIAL (20MG/ML) ONE; -MIDAZOLAM HCL 1 MG/ML 2ML VIAL ONE; -NEOSTIGMINE METHYLSULFATE 5 MG/5 ML SYR ONE; -NURSING VERBAL MED ORDER ONE; -OXYCODONE/ACETAMINOPHEN 5-325 TAB PO PRN; -PROMETHAZINE HCL INJ 25 MG in SODIUM CHLORIDE 0.9% 50ML 50 ML IV PRN; -PROMETHAZINE HCL INJ 25 MG/ML 1 ML VIAL ONE; -PROPOFOL IV EMULSION 10 MG/ML 20 ML VIAL ONE; -ROCURONIUM BROMIDE 10 MG/ML 5 ML VIAL ONE; -SCOPOLAMINE 1.5 MG TDSY TD ONE; -SODIUM CHLORIDE 0.9% 1000ML 1,000 ML IV SCH
[2017-10-24 19:30] VITALS: TEMP 37.4; Ht 162.6 cm; Wt 87.3 kg
[2017-10-24] MEDS ORDERED: SODIUM CHLORIDE 0.9% 1000ML 1,000 ML IV STA (19:40)
[2017-10-24 20:35] LABS: BASO % 0.2 %; EOS % 0.6 %; EOS ABS # 0.08 K/uL (0-0.5); HEMATOCRIT 36.6 % (37-47); HEMOGLOBIN 12.1 g/dL (12.0-16.0); LYMPH % 15.7 %; LYMPH ABS # 2.26 K/uL (1.2-3.4); MEAN CELL VOLUME 85.5 fL (80-100); MEAN CORPUSCULAR HEMOGLOBIN 28.3 pg (25-34); MEAN CORPUSCULAR HGB CONC 33.1 g/dl (32-36); MEAN PLATELET VOLUME 11.3 fL (7.4-10.4); MONO % 4.9 %; MONO ABS # 0.71 K/uL (0.11-0.59); NEUT % 78.3 %; NEUT ABS # 11.23 K/uL (1.4-6.5); PLATELET COUNT 317 K/uL (130-400); RED CELL DISTRIBUTION WIDTH CV 13.1 % (11.5-14.5); RED CELL DISTRIBUTION WIDTH SD 40.5 fL (36.4-46.3); WHITE BLOOD COUNT 14.35 K/uL (4.8-10.8)
[2017-10-24 20:36] LABS: BASO ABS # 0.03 K/uL (0-0.2); IG# 0.04 K/uL (0.00-0.02)
[2017-10-24 20:52] LABS: ALBUMIN 3.7 gm/dl (3.4-5.0); CREATININE 0.85 mg/dl (0.60-1.20); POTASSIUM 3.4 mmol/L (3.5-5.1); TOTAL PROTEIN 8.1 gm/dl (6.4-8.2)
[2017-10-24] MEDS ORDERED: OPTIRAY 320 IV PRN (21:30)
--- NOTE | 2017-10-24 22:13 | DIAGNOSTIC IMAGING REPORT ---
CT ABD/PELVIS IV CONTRAST ONLY CLINICAL HISTORY: Generalized abdominal pain. COMPARISON STUDY: 11/09/2014 TECHNIQUE: Following the IV administration of 116 mL of Optiray-320, CT scan of the abdomen and pelvis was performed from the lung bases to the proximal femurs. Images are reviewed in the axial, sagittal, and coronal planes. IV contrast was administered without complication. A dose lowering technique was utilized adhering to the principles of ALARA. CT DOSE: 920.20 mGycm FINDINGS: Lower chest: There are mild basilar atelectatic changes. Liver: The contrast-enhanced liver is normal in size, contour, and attenuation. There is no intrahepatic biliary ductal dilatation. The hepatic veins and portal veins are patent. Gallbladder: Surgically absent Spleen: Normal in size and attenuation. Pancreas: Unremarkable. Adrenal glands: Unremarkable. Kidneys: There is symmetric renal cortical enhancement. The kidneys are normal in size without hydronephrosis. Bowel: There are no transition zones indicate bowel obstruction. There is no acute diverticulitis. The appendix appears normal. Peritoneum: There is no intraperitoneal free air or abdominal ascites. There is a tiny umbilical hernia. Vasculature: The abdominal aorta is normal in course and caliber. Adenopathy: There are borderline enlarged pelvic sidewall lymph nodes, likely reactive. Pelvic viscera: There is fluid within a distended endometrial cavity (2 cm). There is gas present within the endometrial cavity. Correlation with history of recent instrumentation is recommended. In the absence of recent instrumentation this could indicate endometritis. Skeletal structures: There is a 26 mm periumbilical fluid collection containing a small air bubble. Correlation with history of recent surgery is recommended. This could represent an abscess or postsurgical fluid collection. IMPRESSION: 1. No evidence of bowel obstruction. No evidence of free air 2. Normal appendix. No evidence of acute diverticulitis. 3. 26 mm focal fluid collection containing a small air bubble. This could represent, an abscess or postsurgical collection. Correlation with surgical history is recommended. 4. Fluid within a distended endometrial cavity. There is gas present within the endometrial cavity. Correlation with a history of recent instrumentation is recommended. This could represent endometritis. Electronically signed by: Stuart Walker M.D. 10/24/2017 10:12 PM Dictated Date/Time: 10/24/2017 10:05 PM
[2017-10-24] MEDS ORDERED: AMPICILLIN/SULBACTAM SOD INJ 3,000 MG in SODIUM CHLORIDE 0.9% 100ML 100 ML IV STA (22:25)
[2017-10-24] MEDS ORDERED: AMOX875T PO (22:33)
--- NOTE | 2017-10-24 23:10 | EMERGENCY ROOM VISIT NOTE ---
History Report prepared by Julissa: Tina Thompson Under the Supervision of: Dr. Amadou Shaffer M.D. First contact with patient: 19:33 Chief Complaint: WOUND INFECTION Stated Complaint: HIGH FEVER, FOUL DISCHARGE POST SURGERY History of Present Illness The patient is a 32 year old female who presents to the Emergency Room with complaints of an episode of a fever beginning today. She states she had a uterine ablation and fallopian tube removal [address] Vegas. The patient notes she did not stay in the hospital following this procedure. She reports she has been experiencing chills for 4 days, and had a fever of 103F today. The patient notes foul-swelling vaginal discharge. She reports some abdominal pain, which she attributes to her recent incisions. The patient notes some nausea and coughing, and denies urinary burning or vomiting. Source of History: patient Onset: today Position: head Symptom Intensity: 103F Quality: other (fever) Timing: other (episode) Associated Symptoms: + chills, + cough, + nausea, No vomiting Note: Associated symptoms: foul-smelling vaginal discharge. Denies: urinary discharge. Review of Systems See HPI for pertinent positives & negatives. A total of 10 systems reviewed and were otherwise negative. Past Medical & Surgical Medical Problems: (1) Crohn's disease (2) GERD (gastroesophageal reflux disease) (3) Gestational diabetes Family History FHx: cancer FHx: diabetes FHx: heart disease FHx: hypertension FHx: kidney disease/stones FHx: lung disease Social History Smoking Status: Never Smoker Alcohol Use: occasionally Marital Status: Housing Status: lives with family Occupation Status: employed Current/Historical Medications Scheduled Amoxicillin & Pot Clavulanate (Augmentin 875-125 mg), 875 MG PO BID Scheduled PRN Acetaminophen (Tylenol), 1,000 MG PO DIRECTED PRN for Headache Gabapentin (Neurontin), 100 MG PO DIRECTED PRN for Headache Prochlorperazine Maleate (Compazine), 5 MG PO Q6H PRN for Nausea Allergies Coded Allergies: Hydromorphone (Verified Allergy, Intermediate, HIVES, 10/24/17) Ondansetron (Verified Allergy, Mild, HIVES SWELLING, 10/24/17) Sulfa Antibiotics (Verified Allergy, Unknown, HIVES, 10/24/17) Physical Exam Vital Signs Date Time Temp Pulse Resp B/P (MAP) Pulse Ox O2 Delivery O2 Flow Rate FiO2 10/24/17 23:24 88 18 118/68 96 10/24/17 22:00 90 20 111/65 94 Room Air 10/24/17 20:18 75 18 124/68 100 Room Air 10/24/17 19:30 37.4 88 20 145/88 98 Room Air Physical Exam GENERAL: Patient is in no acute distress. HEENT: No acute trauma, normocephalic atraumatic, mucous membranes moist, no nasal congestion, no scleral icterus. NECK: No stridor, no adenopathy, no meningismus, trachea is midline. LUNGS: Clear to auscultation bilaterally, no wheeze, no rhonchi, breath sounds equal. HEART: Without murmurs gallops or rubs, regular rate and rhythm. ABDOMEN: Soft, bowel sounds positive, no hernias, no peritonitis. Mildly tender in low/mid pelvis, surgical incisions healing without erythema or drainage. EXTREMITIES: No cyanosis or edema, full range of motion of all the joints without pain or difficulty, no signs for acute trauma. NEUROLOGIC: Oriented x 3, no acute motor or sensory deficits, no focal weakness. SKIN: No rash, no jaundice, no diaphoresis. Medical Decision & Procedures ER Provider Diagnostic Interpretation: Radiology results as stated below per my review and radiologist interpretation: CT ABD/PELVIS IV CONTRAST ONLY CLINICAL HISTORY: Generalized abdominal pain. COMPARISON STUDY: 11/09/2014 TECHNIQUE: Following the IV administration of 116 mL of Optiray-320, CT scan of the abdomen and pelvis was performed from the lung bases to the proximal femurs. Images are reviewed in the axial, sagittal, and coronal planes. IV contrast was administered without complication. A dose lowering technique was utilized adhering to the principles of ALARA. CT DOSE: 920.20 mGycm FINDINGS: Lower chest: There are mild basilar atelectatic changes. Liver: The contrast-enhanced liver is normal in size, contour, and attenuation. There is no intrahepatic biliary ductal dilatation. The hepatic veins and portal veins are patent. Gallbladder: Surgically absent Spleen: Normal in size and attenuation. Pancreas: Unremarkable. Adrenal glands: Unremarkable. Kidneys: There is symmetric renal cortical enhancement. The kidneys are normal in size without hydronephrosis. Bowel: There are no transition zones indicate bowel obstruction. There is no acute diverticulitis. The appendix appears normal. Peritoneum: There is no intraperitoneal free air or abdominal ascites. There is a tiny umbilical hernia. Vasculature: The abdominal aorta is normal in course and caliber. Adenopathy: There are borderline enlarged pelvic sidewall lymph nodes, likely reactive. Pelvic viscera: There is fluid within a distended endometrial cavity (2 cm). There is gas present within the endometrial cavity. Correlation with history of recent instrumentation is recommended. In the absence of recent instrumentation this could indicate endometritis. Skeletal structures: There is a 26 mm periumbilical fluid collection containing a small air bubble. Correlation with history of recent surgery is recommended. This could represent an abscess or postsurgical fluid collection. IMPRESSION: 1. No evidence of bowel obstruction. No evidence of free air 2. Normal appendix. No evidence of acute diverticulitis. 3. 26 mm focal fluid collection containing a small air bubble. This could represent, an abscess or postsurgical collection. Correlation with surgical history is recommended. 4. Fluid within a distended endometrial cavity. There is gas present within the endometrial cavity. Correlation with a history of recent instrumentation is recommended. This could represent endometritis. Electronically signed by: Stuart Walker M.D. 10/24/2017 10:12 PM Dictated Date/Time: 10/24/2017 10:05 PM Laboratory Results 10/24/17 20:10 Red Blood Count 4.28, Mean Corpuscular Volume 85.5, Mean Corpuscular Hemoglobin 28.3, Mean Corpuscular Hemoglobin Concent 33.1, Mean Platelet Volume 11.3, Neutrophils (%) (Auto) 78.3, Lymphocytes (%) (Auto) 15.7, Monocytes (%) (Auto) 4.9, Eosinophils (%) (Auto) 0.6, Basophils (%) (Auto) 0.2, Neutrophils # (Auto) 11.23, Lymphocytes # (Auto) 2.26, Monocytes # (Auto) 0.71, Eosinophils # (Auto) 0.08, Basophils # (Auto) 0.03 10/24/17 20:10 Test 10/24/17 20:10 10/24/17 21:30 White Blood Count 14.35 K/uL (4.8-10.8) Red Blood Count 4.28 M/uL (4.2-5.4) Hemoglobin 12.1 g/dL (12.0-16.0) Hematocrit 36.6 % (37-47) Mean Corpuscular Volume 85.5 fL (80-100) Mean Corpuscular Hemoglobin 28.3 pg (25-34) Mean Corpuscular Hemoglobin Concent 33.1 g/dl (32-36) Platelet Count 317 K/uL (130-400) Mean Platelet Volume 11.3 fL (7.4-10.4) Neutrophils (%) (Auto) 78.3 % Lymphocytes (%) (Auto) 15.7 % Monocytes (%) (Auto) 4.9 % Eosinophils (%) (Auto) 0.6 % Basophils (%) (Auto) 0.2 % Neutrophils # (Auto) 11.23 K/uL (1.4-6.5) Lymphocytes # (Auto) 2.26 K/uL (1.2-3.4) Monocytes # (Auto) 0.71 K/uL (0.11-0.59) Eosinophils # (Auto) 0.08 K/uL (0-0.5) Basophils # (Auto) 0.03 K/uL (0-0.2) RDW Standard Deviation 40.5 fL (36.4-46.3) RDW Coefficient of Variation 13.1 % (11.5-14.5) Immature Granulocyte % (Auto) 0.3 % Immature Granulocyte # (Auto) 0.04 K/uL (0.00-0.02) Anion Gap 10.0 mmol/L (3-11) Est Creatinine Clear Calc Drug Dose 99.8 ml/min Estimated GFR () 103.6 Estimated GFR (Non- 89.4 BUN/Creatinine Ratio 12.9 (10-20) Calcium Level 9.0 mg/dl (8.5-10.1) Total Bilirubin 0.7 mg/dl (0.2-1) Aspartate Amino Transf (AST/SGOT) 11 U/L (15-37) Alanine Aminotransferase (ALT/SGPT) 28 U/L (12-78) Alkaline Phosphatase 74 U/L (45-117) Total Protein 8.1 gm/dl (6.4-8.2) Albumin 3.7 gm/dl (3.4-5.0) Globulin 4.4 gm/dl (2.5-4.0) Albumin/Globulin Ratio 0.8 (0.9-2) Urine Color YELLOW Urine Appearance CLEAR (CLEAR) Urine pH 6.0 (4.5-7.5) Urine Specific [place] 1.009 (1.000-1.030) Urine Protein NEG (NEG) Urine Glucose (UA) NEG (NEG) Urine Ketones NEG (NEG) Urine Occult Blood NEG (NEG) Urine Nitrite NEG (NEG) Urine Bilirubin NEG (NEG) Urine Urobilinogen NEG (NEG) Urine Leukocyte Esterase NEG (NEG) Laboratory results reviewed by me. Medications Administered Medications (Trade) Dose Ordered Sig/Radha Route Start Time Stop Time Status Last Admin Dose Admin Sodium Chloride 1,000 ml @ 999 mls/hr Q1H1M STAT IV 10/24/17 19:40 10/24/17 20:40 DC 10/24/17 20:18 999 MLS/HR Ampicillin Sodium/ Sulbactam Sodium 3000 mg/Sodium Chloride 108 ml @ 200 mls/hr NOW STAT IV 10/24/17 22:25 10/24/17 22:57 DC 10/24/17 22:43 200 MLS/HR ED Course 6: The patient was evaluated in room C10. A complete history and physical exam was performed. 0: Ordered Sodium Chloride 1000 ml @ 999 mls/hr IV 2116: I discussed the case with Dr. Vegas, CHEMI[employer] MEMBER. He recommended a CT with contrast rather than an ultrasound. 3: I reevaluated and updated the patient. 4: Discussed the patient's case with Dr. Nelson, CHEMISTR[employer]ACULT[employer] MEMBER. He does not recommend a pelvic exam. He recommends antibiotics and discharge home. He will have the patient follow-up in the office. 5: Ordered Ampicillin Sodium/Sulbactam Sodium 3000 mg/Sodium Chloride 108 ml @ 200 mls/hr. 2227: Reevaluated the patient. Discussed results and discharge instructions: she verbalized understanding and agreement. The patient is ready for discharge. Medical Decision Differential diagnoses include: endometritis, UTI, post-op infection, electrolyte imbalance, anemia, cellulitis. There is a moderate leukocytosis at 14,000, this could be consistent with infection. No concerning anemia. No significant electrolyte abnormality, kidney failure or hepatitis. Urinalysis does not show infection. Abdominal and pelvis CT shows a small bubble of fluid at the umbilicus, likely consistent with her recent surgery. She had some air in the uterus, likely from the uterine ablation. Endometritis was thought possible. There was no abscess seen within the pelvis, no bowel obstruction. On exam, there was no peritonitis. The patient was not febrile. She was not toxic. The patient received IV saline. She was given IV Unasyn. I spoke to OB. The patient was felt stable for discharge on oral antibiotics, they suggested Augmentin. A pelvic exam was not felt warranted since this would not help in the diagnosis. OB also felt the pelvic exam may cause worsening of the situation as she had just had the uterine ablation. The patient is being discharged to follow with OB. She will return if worsening. She will return for higher fever or if not improving on the antibiotics. She does likely have a mild endometritis. Medication Reconcilliation Current Medication List: was personally reviewed by me Blood Pressure Screening Patient's blood pressure: Normal blood pressure Blood pressure disposition: Did not require urgent referral Consults Time Called: 2101 Consulting Physician: Dr. Vegas, [employer]MI[employer] MEMBER Returned Call: [phone]: I discussed the case with Dr. Vegas, CHEMISTR[employer] MEMBER. He recommended a CT with contrast rather than an ultrasound. Additional Consults: Time Called: 2220 Consulted Physician: Dr. Nelson, CHEMI[employer] MEMBER Returned Call: [phone] Additional Comments: 2223: Discussed the patient's case with Dr. Nelson, CHEMI[employer] MEMBER. He does not recommend a pelvic exam. He recommends antibiotics and discharge home. He will have the patient follow-up in the office. Impression Primary Impression: Endometritis Additional Impression: History of pelvic surgery Scribe Attestation See HPI for pertinent positives & negatives. A total of 10 systems reviewed and were otherwise negative. Departure Information Dispostion Home / Self-Care Prescriptions Amoxicillin & Pot Clavulanate (Augmentin 875-125 mg) 1 Tab Tab 875 MG PO BID for 10 Days, #20 TAB Prov: Amadou Shaffer M.D. 10/24/17 Referrals Yomi Bates M.D. (PCP) Forms HOME CARE DOCUMENTATION FORM, IMPORTANT VISIT INFORMATION, WORK / SCHOOL INSTRUCTIONS Patient Instructions My [facility] [employer] Additional Instructions augmentin 2x per day for 10 days fluids rest otc pain meds and otc meds for fever as directed (motrin and tylenol) call tomorrow to set up double end sewer appt return for worsening symptoms, vomiting or if not improving Problem Qualifiers
[2017-10-24 23:24] VITALS: BP 118/68; PULSE 88; O2SAT 96
== END 2017-10-24 23:24 | disposition home or self-care (01) ==
LOC: C.EDB 19:23 → C.EDC 23:24
DX: N71.9 Inflammatory disease of uterus, unspecified (principal); Z98.890 Other specified postprocedural states; K50.90 Crohn's disease, unspecified, without complications; K21.9 Gastro-esophageal reflux disease without esophagitis; Z88.2 Allergy status to sulfonamides; Z88.5 Allergy status to narcotic agent; Z88.8 Allergy status to other drugs, medicaments and biological substances